=== PATIENT | male | born 1935 | race Caucasian/White ===

== ENCOUNTER 2017-10-14 00:31 | Observation (INO) | payer MEDICARE, MEDICAID ==
[2017-10-14] MEDS ORDERED: Acetaminophen TAB* 325 MG PO ONE (01:04)
[2017-10-14] MEDS ORDERED: NS 0.9% 1000 ML* 1,000 ML IV ONE (01:04)
[2017-10-14] MEDS ORDERED: Levofloxacin 750 MG IVPREMIX(* 750 MG/150 ML BAG IVPB ONE (01:05)
[2017-10-14 01:35] LABS: ABS Basophils 0.1 10^3/ul (0-0.2); ABS Eosinophils 0.2 10^3/ul (0-0.6); ABS Lymphocytes 1.2 10^3/ul (1.0-4.8); ABS Neutrophils 11.4 10^3/ul (1.5-7.7); ABS Nucleated RBC 0 10^3/ul; Eosinophil % 1.4 % (0-6); Hematocrit 38 % (42-52); Hemoglobin 12.6 g/dl (14.0-18.0); Lymphocyte % 8.6 % (25-47); Mean Corpuscular HGB Conc 34 g/dl (31-36); Mean Corpuscular Hemoglobin 28 pg (27-31); Mean Corpuscular Volume 83 fL (80-94); Mean Platelet Volume 8.7 um3 (7.4-10.4); Nucleated Red Blood Cells % 0; Platelet Count 186 10^3/ul (150-450); Red Cell Distribution Width 14 % (10.5-15); White Blood Count 13.9 10^3/ul (3.5-10.8)
[2017-10-14 01:43] LABS: INR 1.03 (0.77-1.02)
[2017-10-14 01:52] LABS: EGFR Non-African American 55.5 (>60)
[2017-10-14 02:55] LABS: Urine Appearance Clear; Urine Blood 1+ (Negative); Urine Color Yellow; Urine Ketones Negative (Negative); Urine Protein Negative (Negative); Urine Specific Gravity 1.012 (1.010-1.030); Urine Urobilinogen Negative (Negative)
[2017-10-14] MEDS ORDERED: Potassium Chloride LIQUID* 20 MEQ PACKET PO ONE (02:57)
[2017-10-14] MEDS ORDERED: Ondansetron 40 MG VIAL* 2 MG/ML 20 ML VIAL IV PRN (03:34)
[2017-10-14] MEDS ORDERED: Albuterol 2.5 MG/3 ML NEB.SOL* (0.083%) INH PRN (03:34)
[2017-10-14] MEDS ORDERED: Acetaminophen TAB* 325 MG PO PRN (03:34)
[2017-10-14] MEDS ORDERED: Dextrose 50% Syringe 50 ML* 25 GM/50 ML SYRINGE IV PUSH PRN (03:34)
[2017-10-14] MEDS ORDERED: Meclizine TAB* 12.5 MG PO PRN (03:38)
[2017-10-14] MEDS ORDERED: traMADol TAB* 50 MG PO PRN (03:38)
--- NOTE | 2017-10-14 03:38 | ED ---
Kolton Bartlett Gabriel, scribed for Jazmine Pickens MD on 10/14/17 at 0136 . Complex/Multi-Sys Presentation - HPI Summary HPI Summary: This patient is a 82 year old M BIBA to [facility] c/o weakness that began earlier tonight. Pt felt good earlier today and was gardening. Then he got a chill while watering his perkins, later on he went to use the bathroom and when he went to stand he felt so weak he was unable to. The patient rates the pain 0/10 in severity. Patient reports cough and fever. Patient denies SOB. - History Of Current Complaint Chief Complaint: EDWeakness Time Seen by Provider: 10/14/17 00:56 Hx Obtained From: Patient Onset/Duration: Lasting Hours, Still Present Timing: Constant Severity Currently: Mild Severity Initially: Mild Associated Signs And Symptoms: Positive: Other - weakness - Allergies/Home Medications Allergies/Adverse Reactions: Allergies Allergy/AdvReac Type Severity Reaction Status Date / Time No Known Allergies Allergy Verified 10/14/17 00:39 Home Medications: Home Medications Insulin Glargine,Hum.rec.anlog [Lantus Solostar 5x3 ML PENS] 15 units SQ DAILY 10/14/17 [History Confirmed 10/14/17] PMH/Surg Hx/FS Hx/Imm Hx Endocrine/Hematology History: Reports: Hx Diabetes Cardiovascular History: Reports: Hx Hypercholesterolemia, Hx Hypertension, Other Cardiovascular Problems/Disorders - IDDM II Denies: Hx Auto Implanted Cardiovert Defib, Hx Cardiac Arrest History: Reports: Other Problems/Disorders - "I had a surgery bc I had a hard time going pee" Sensory History: Reports: Hx Cataracts, Hx Contacts or Glasses Comment Only: Hx Deafness - hard of hearing Opthamlomology History: Reports: Hx Cataracts, Hx Contacts or Glasses Neurological History: Denies: Hx Dementia, Hx Developmental Delay - Surgical History Surgery Procedure, Year, and Place: urogenital procedure for urinary retention. cataracts. left knee surgery - Immunization History Date of Tetanus Vaccine: Unk Date of Influenza Vaccine: Fall 2014 Infectious Disease History: No Infectious Disease History: Reports: Hx Shingles - pt states "i took some pills for shingles awhile ago" Denies: Traveled Outside the US in Last 30 Days - Social History Alcohol Use: None Substance Use Type: Reports: None Hx Tobacco Use: Yes Smoking Status (MU): Former Smoker Amount Used/How Often: 1ppd Length of Time of Smoking/Using Tobacco: 20 yrs Have You Smoked in the Last Year: No Review of Systems Positive: Fever, Chills Positive: Cough Positive: Weakness All Other Systems Reviewed And Are Negative: Yes Physical Exam - Summary Physical Exam Summary: VITAL SIGNS: Reviewed. GENERAL: ~Patient is a well-developed and nourished male who is lying comfortable in the stretcher. Patient is not in any acute respiratory distress. HEAD AND FACE: No signs of trauma. No ecchymosis, hematomas or skull depressions. No sinus tenderness. EYES: PERRLA, EOMI x 2, No injected conjunctiva, no nystagmus. EARS: Hearing grossly intact. Ear canals and tympanic membranes are within normal limits. MOUTH: Oropharynx within normal limits. NECK: Supple, trachea is midline, no adenopathy, no JVD, no carotid bruit, no c- spine tenderness, neck with full ROM. CHEST: Symmetric, no tenderness at palpation LUNGS: rales in the left base. CVS: Regular rate and rhythm, S1 and S2 present, no murmurs or gallops appreciated. ABDOMEN: Soft, non-tender. No signs of distention. No rebound no guarding, and no masses palpated. Bowel sounds are normal. EXTREMITIES: FROM in all major joints, no edema, no cyanosis or clubbing. NEURO: Alert and oriented x 3. No acute neurological deficits. Speech is normal and follows commands. SKIN: Dry and warm Triage Information Reviewed: Yes Vital Signs On Initial Exam: Initial Vitals Temp Pulse Resp BP Pulse Ox 101.6 F 105 19 164/84 93 10/14/17 00:36 10/14/17 00:36 10/14/17 00:36 10/14/17 00:36 10/14/17 00:36 Vital Signs Reviewed: Yes Diagnostics - Vital Signs Vital Signs Temp Pulse Resp BP Pulse Ox 10/14/17 00:36 101.6 F 105 19 164/84 93 - Laboratory Result Diagrams: 10/14/17 01:20 10/14/17 01:20 Lab Statement: Any lab studies that have been ordered have been reviewed, and results considered in the medical decision making process. - Radiology CXR Radiology Interpretation Completed By: Radiologist - no acute process. Pending final report - EKG 0105 Cardiac Rate: NL EKG Rhythm: Sinus Tachycardia - at 100 BPM EKG Interpretation: Normal axis. Normal interval. No ischemic changes Complex Multi-Symp Course/Dx Assessment/Plan: This patient is a 82 year [facility] that began earlier tonight. Pt felt good earlier today and was gardening. Then he got a chill while watering his perkins, later on he went to use the bathroom and when he went to stand he felt so weak he was unable to. The patient rates the pain 0/10 in severity. Patient reports cough and fever. Patient denies SOB. An EKG reveals NSR 100 Normal axis. Normal interval. No ischemic changes. CXR reveals, no acute process. Pending final report. Blood work and UA obtained. In the ED course the patient was given levaquin, potassium, and IV fluids. Dx weakness and UTI. We discussed patient care with Dr. Parmar and she has accepted the patient for admission. Patient will be admitted. The patient is agreeable with this plan. - Diagnoses Provider Diagnoses: Weakness, UTI (urinary tract infection) - Physician Notifications Discussed Care Of Patient With: Chrissie Parmar Time Discussed With Above Provider: 03:11 Instructed by Provider To: Admit As Observation Discharge - Sign-Out/Discharge Documenting (check all that apply): Discharge/Admit/Transfer - Discharge Plan Condition: Fair Disposition: ADMITTED TO [facility] Referrals: Edie Small, BLANKET INSPECTOR [Primary Care Provider] - The documentation as recorded by the Kolton bee Gabriel accurately reflects the service I personally performed and the decisions made by me, Jazmine Pickens MD.
[2017-10-14] MEDS ORDERED: NS 0.9% 1000 ML* 1,000 ML IV SCH (03:45)
[2017-10-14] MEDS: KCL 10 MEQ/50 ML IVPREMIX* 10 MEQ/50 ML BAG IV SCH ×2 (04:22→06:04)
[2017-10-14] MEDS: Heparin VIAL(*) 5000 UNITS/ML VIAL (FIVE THOUSAND) SUBCUT SCH ×3 (06:03→21:54)
[2017-10-14 06:29] LABS: ABS Basophils 0.1 10^3/ul (0-0.2); ABS Eosinophils 0.2 10^3/ul (0-0.6); ABS Lymphocytes 1.8 10^3/ul (1.0-4.8); ABS Monocytes 1.1 10^3/ul (0-0.8); ABS Neutrophils 9.4 10^3/ul (1.5-7.7); ABS Nucleated RBC 0 10^3/ul; Eosinophil % 1.3 % (0-6); Hematocrit 35 % (42-52); Hemoglobin 11.7 g/dl (14.0-18.0); Lymphocyte % 14.6 % (25-47); Mean Corpuscular HGB Conc 33 g/dl (31-36); Mean Corpuscular Hemoglobin 28 pg (27-31); Mean Corpuscular Volume 84 fL (80-94); Mean Platelet Volume 8.9 um3 (7.4-10.4); Nucleated Red Blood Cells % 0; Platelet Count 170 10^3/ul (150-450); Red Blood Count 4.19 10^6/ul (4.00-5.40); Red Cell Distribution Width 14 % (10.5-15); White Blood Count 12.7 10^3/ul (3.5-10.8)
[2017-10-14 06:38] LABS: EGFR Non-African American 56.1 (>60)
--- NOTE | 2017-10-14 07:53 | RAD ---
HISTORY: weakness COMPARISONS: June 16, 2015 VIEWS: 1: frontal portable view of the chest at 1:35 AM FINDINGS: LINES AND TUBES: None. CARDIOMEDIASTINAL SILHOUETTE: The cardiomediastinal silhouette is normal for portable technique. PLEURA: The costophrenic angles are sharp. No pleural abnormalities are noted. LUNG PARENCHYMA: The lungs are clear. ABDOMEN: The upper abdomen is clear. There is no subphrenic gas. BONES AND SOFT TISSUES: No bone or soft tissue abnormalities are noted. IMPRESSION: NO ACTIVE CARDIOPULMONARY DISEASE.
[2017-10-14] MEDS: Lisinopril TAB* 10 MG PO SCH (08:59)
[2017-10-14] MEDS: Aspirin EC TAB* 81 MG TAB.EC PO SCH (08:59)
[2017-10-14] MEDS: Atorvastatin* 10 MG TAB PO SCH (08:59)
[2017-10-14] MEDS: Insulin LISPRO* 1 UNITS UNIT SUBCUT SCH ×3 (08:59→17:19)
[2017-10-14] MEDS: Insulin GLARGINE(*) 1 UNITS UNIT SUBCUT SCH (09:10)
--- NOTE | 2017-10-14 10:15 | HP ---
CC: Edie Small NP. * HISTORY AND PHYSICAL: DATE OF ADMISSION: 10/14/17 PRIMARY CARE PROVIDER: Edie Small NP. MY ATTENDING PHYSICIAN WHILE IN THE HOSPITAL: Dr. Chrissie Parmar * (report dictated by Davin Dawn NP) CHIEF COMPLAINT: 1. Weakness. 2. Cough. HISTORY OF PRESENT ILLNESS: Mr. James is an 82-year-old male patient who has a history of diabetes, CKD, hypertension, hyperlipidemia and also history of BPH. He is presenting today stating that this evening about around 1 o' clock - 12:30, he got up to go to use the bathroom, which he normally does throughout the night, he could not get up. He felt really weak, his legs and arms felt weak, he could not sit forward. When he did try to stand forward, he got dizzy, he fell backwards. He woke his up. His helped him to the bathroom. He was concerned because he could not really get off the toilet and she immediately called 911. He states that he has had a cough for the last couple of days, but he has been feeling well. He has not felt weak like this. He had chills tonight coming into the ER. He said there was a fever recorded in the ambulance on his way over to [facility]. He states the cough is nonproductive. He denied any shortness of breath or chest pain. He states he typically has to get up a couple of times in the middle of the night to go to the bathroom, which is not new for him. He denied any dysuria, abdominal pain, no nausea or vomiting. He states that he felt congested and there has been no recent change in his medications. He was concerned though because of the weakness as was his . She brought him into the hospital. He states that he is feeling better now. Ultimately though, it sounds that when he came in, he had elevated white count. In addition to this, he also had fever of over 101.6. Because of these findings, we were asked to evaluate for admission. PAST MEDICAL HISTORY: Significant for: 1. Diabetes. 2. Hypertension. 3. Hyperlipidemia. 4. CKD, stage 3. 5. BPH. PAST SURGICAL HISTORY: He has had right lower extremity surgery, he is not sure exactly what was done, it was many years ago, he says. He has also had a partial TURP. HOME MEDICATIONS: According to the list that he provided includes: 1. Lantus 15 units subcu daily. 2. B12, 2500 mcg p.o. daily. 3. Aspirin 81 mg daily. 4. Glucophage 1000 mg p.o. twice a day. 5. Glipizide 2.5 mg daily. 6. Simvastatin 20 mg daily. 7. Meclizine 25 mg p.o. t.i.d. as needed. 8. Lisinopril/hydrochlorothiazide one tablet daily. 9. Tramadol 50 mg every six hours as needed. ALLERGIES: No known drug allergies. FAMILY HISTORY: His mother was diabetic. His father had a history of [place]. SOCIAL HISTORY: Former smoker. He quit over 4 years ago. He does not drink alcohol. Lives with his , who is also his surrogate decision maker. REVIEW OF SYSTEMS: Again, there is a documented fever here. He admits to having chills. He denies having any significant weight change. There was no double vision. He denies having any ear discharge. No rhinorrhea. He does admit to having a cough, but denies congestion. He denies any shortness of breath. There was no abdominal pain. He denies having any nausea, vomiting. No dysuria, no frequency. No seizure. No loss of consciousness. No pruritus and no skin ulcerations. Review of 14 systems completed, all others were negative. PHYSICAL EXAMINATION GENERAL: At this time, Mr. James is an 82-year-old male patient. He is sitting in he ED stretcher. He does not appear to be in any acute distress. He appears to be well nourished, well developed. VITAL SIGNS: Blood pressure 130/90, pulse 87, respirations 18, O2 sat 95%, temperature 99. When he came in, it was 101.6. HEENT: Head is atraumatic and normocephalic. Eyes: EOMs are intact. Sclerae are anicteric. Throat: Oral mucosa appears to be dry. No oropharyngeal erythema. NECK: Supple. LUNGS: He did have some crackles actually in his right base. Equal diaphragmatic expansion. HEART: Sounds S1, S2. Regular rate and rhythm. No murmurs, rubs, or gallops. ABDOMEN: His abdomen was soft, flat and nontender. Bowel sounds present. EXTREMITIES: Pulses are 2+ throughout. He is moving all 4 extremities with 5/ 5 strength. NEUROLOGIC: He is awake, he is alert, and he is oriented x3. Tongue is midline. Certified Public Accountant are equal. No gross focal deficits. SKIN: Intact. LABORATORY DATA/DIAGNOSTIC STUDIES: WBC of 13.9, RBC of 4.50, hemoglobin of 12.6, hematocrit of 38. Hemoglobin is right at his baseline. Platelet count was 186. INR 1.03. PTT 29.3. Sodium 137, potassium of 3.2, chloride 98, bicarb 29, BUN 15, creatinine of 1.24, it is right near his baseline, he is normally 1.1. Glucose 152, lactate 2, calcium 9.1, total bili 0.5. AST 16, ALT 11, alk phos 91. Troponin 0.01. CRP of 26. Albumin 4.0. BNP 46. Urine, 1+ blood, 2+rbc's, 1+glucose. He did have a chest x-ray obtained today. When I looked at it, I did not appreciate any pulmonary edema or effusion. I am not seeing an infiltrate on x-rays at this point. He may have something in the right base, but I am not convinced that there is a definite infiltrate there. He did have an EKG obtained today. EKG does show normal sinus rhythm with a rate of 100. He does have some up-slopping ST segments diffusely which when you look from previous EKG, he had that previously. He had no elevation and T- wave inversions were noted. Old medical records were reviewed. ASSESSMENT AND PLAN: Mr. James is an 82-year-old male patient, coming into the ER today with complaints of weakness. On evaluation, found to have a fever , found to have elevated white count, possible pneumonia. He will be admitted under observation status for: 1. Systemic inflammatory response syndrome secondary to possible pneumonia. Again, it is not clear if he has definite pneumonia, but he has been coughing. He has crackles on exam. My plan would be to go ahead and he did get a liter of fluids already. He has been pancultured. I will get Legionella and Strep pneumonia antigen. I will try to get a sputum culture. We will continue the patient on Levaquin renally dosed. I have ordered p.r.n. albuterol for any shortness of breath and I have ordered PT because of the weakness and we will continue to follow him. 2. Hypokalemia. This is being replaced. I am going to give him two IV 10 mEq runs and he has been given 40 mEq here in the ED already and we will continue to follow. 3. Chronic kidney disease. His creatinine is stable. We will continue him as described. 4. Hypertension. I am going to go ahead and hold his hydrochlorothiazide. I will continue lisinopril in the setting of his acute illness. 5. Hyperlipidemia. Continue statin therapy. 6. Diabetes. I have ordered lispro sliding scale. 7. Benin prostatic hypertrophy. Continue with current medical regimen and supportive care. 8. DVT prophylaxis. I will place him on heparin subcutaneous. 9. Code status: Full code. 10. Fluids, electrolytes, nutrition. Again, we are replacing the potassium. I will put him on a consistent carb diet. TIME SPENT: On the admission is 60 minutes, greater than half time spent face- to- face with the patient obtaining my history and physical; other half time spent going over the plan of care with the patient and implementing the plan of care. I did discuss the plan of care with my attending physician, Dr. Parmar; she is in agreement. DAVIN DAWN NP [id number]/[facility] #: [id number] MTDD
--- NOTE | 2017-10-14 16:42 | PN ---
Hospitalist Progress Note Date of Service: 10/14/17 I have seen and examined Mr. James. He feels better but still feels sleepy. S. pneumo antigen is positive Continue levofloxacin x 5 days Did well with PT
[2017-10-15] MEDS: Heparin VIAL(*) 5000 UNITS/ML VIAL (FIVE THOUSAND) SUBCUT SCH (05:52)
[2017-10-15 05:56] VITALS: BP 160/84
[2017-10-15 06:11] LABS: ABS Basophils 0.1 10^3/ul (0-0.2); ABS Eosinophils 0.3 10^3/ul (0-0.6); ABS Lymphocytes 1.4 10^3/ul (1.0-4.8); ABS Monocytes 0.6 10^3/ul (0-0.8); ABS Neutrophils 4.9 10^3/ul (1.5-7.7); ABS Nucleated RBC 0 10^3/ul; Eosinophil % 3.8 % (0-6); Hematocrit 33 % (42-52); Hemoglobin 11.1 g/dl (14.0-18.0); Lymphocyte % 19.7 % (25-47); Mean Corpuscular HGB Conc 34 g/dl (31-36); Mean Corpuscular Hemoglobin 28 pg (27-31); Mean Corpuscular Volume 83 fL (80-94); Mean Platelet Volume 8.4 um3 (7.4-10.4); Nucleated Red Blood Cells % 0; Platelet Count 157 10^3/ul (150-450); Red Blood Count 3.96 10^6/ul (4.00-5.40); Red Cell Distribution Width 14 % (10.5-15); White Blood Count 7.3 10^3/ul (3.5-10.8)
[2017-10-15] MEDS ORDERED: Potassium Chloride LIQUID* 20 MEQ PACKET PO ONE (08:42)
[2017-10-15] MEDS: Aspirin EC TAB* 81 MG TAB.EC PO SCH (10:00)
[2017-10-15] MEDS: Lisinopril TAB* 10 MG PO SCH (10:00)
[2017-10-15] MEDS: Atorvastatin* 10 MG TAB PO SCH (10:00)
[2017-10-15] MEDS: Insulin GLARGINE(*) 1 UNITS UNIT SUBCUT SCH (10:01)
[2017-10-15] MEDS: Insulin LISPRO* 1 UNITS UNIT SUBCUT SCH (10:01)
--- NOTE | 2017-10-15 13:04 | DS ---
DISCHARGE SUMMARY: DATE OF ADMISSION: 10/14/17 DATE OF DISCHARGE: 10/15/17 PRIMARY CARE PHYSICIAN: Edie Small NP. PRINCIPAL DISCHARGE DIAGNOSIS: Community-acquired pneumonia. SECONDARY DISCHARGE DIAGNOSES: 1. Diabetes. 2. Hypertension. 3. Chronic kidney disease. DISCHARGE MEDICATIONS: 1. Lantus 15 units subcutaneous daily. 2. B12 at 2500 mcg daily. 3. Aspirin 81 mg daily. 4. Metformin 1000 mg b.i.d. 5. Glipizide 2.5 mg daily. 6. Simvastatin 20 mg daily. 7. Meclizine 25 mg t.i.d. p.r.n. 8. Lisinopril/HCTZ daily. 9. Tramadol 50 mg q. 6 hours p.r.n. pain. 10. Levofloxacin 750 mg every other day for 2 more doses. HOSPITAL COURSE BY PROBLEM: 1. Community-acquired pneumonia. Mr. James presented with 1 day of cough and weakness. His initial chest x-ray was unremarkable; however, given his presenting symptoms of cough and weakness and the finding of leukocytosis, he was treated empirically for community-acquired pneumonia with levofloxacin. On the following day, his strep pneumonia antigen returned positive, so he was continued on levofloxacin. His weakness improved and by the second day of admission he was able to ambulate on the unit independently and was downgraded from a fall risk to independent level, so it was determined he was safe to go home and he requested discharge. He needs to complete 2 more doses of antibiotics. He will take 1 dose tomorrow 10/16/17 and the last dose on Thursday10/18/17. This has been explained to him and he expressed his understanding. 2. Insulin-dependent diabetes. He was continued on 15 units nightly of Lantus with good control. 3. CKD. His levofloxacin was renally dosed. 4. Hypertension. He was continued on his home doses of lisinopril and HCTZ. 5. Disposition. Mr. James is being discharged to home on 10/15 in good condition. He will follow up with Edie Small within 1 week of discharge. [id number]/[facility] #: [id number] [facility]
[2017-10-16] MEDS ORDERED: Levofloxacin 750 MG IVPREMIX(* 750 MG/150 ML BAG IVPB SCH (09:00)
== END 2017-10-15 11:30 | disposition home or self-care (01) ==
LOC: ED 00:31 → MED 03:47
PROVIDERS: ADMIT Pediatrics; ATTEND Internal Medicine
DX: J15.4 Pneumonia due to other streptococci (principal); R65.10 Systemic inflammatory response syndrome (SIRS) of non-infectious origin without acute organ dysfunction; I12.9 Hypertensive chronic kidney disease with stage 1 through stage 4 chronic kidney disease, or unspecified chronic kidney disease; E11.22 Type 2 diabetes mellitus with diabetic chronic kidney disease; R53.1 Weakness; N18.3 Chronic kidney disease, stage 3 (moderate); Z79.4 Long term (current) use of insulin; E87.6 Hypokalemia; E78.5 Hyperlipidemia, unspecified; Z79.899 Other long term (current) drug therapy; Z79.82 Long term (current) use of aspirin; N40.0 Benign prostatic hyperplasia without lower urinary tract symptoms; Z87.891 Personal history of nicotine dependence; Z82.49 Family history of ischemic heart disease and other diseases of the circulatory system; R00.0 Tachycardia, unspecified
CPT/HCPCS: 36415; 71045; 80048; 80053; 81003; 81015; 83605; 83880; 84484; 85025; 85610; 85730; 86140; 87040; 87086; 87899; 93005; 96361; 96365; 96366; 96372; 99284; A9270-GY; G0378; G8978-GP-CI; G8979-GP-CI; G8980-GP-CI; J1644; J3480

== ENCOUNTER 2018-05-11 12:26 | Inpatient (IN) | payer MEDICARE, MEDICAID ==
[2018-05-11] MEDS ORDERED: NS 0.9% 1000 ML*IV.FLUID IV ONE (12:37)
[2018-05-11] MEDS ORDERED: Acetaminophen TAB* 325 MG PO ONE (12:38)
[2018-05-11] MEDS ORDERED: Levofloxacin 750 MG IVPREMIX(* 750 MG/150 ML BAG IVPB ONE (12:38)
[2018-05-11] MEDS ORDERED: Acetaminophen TAB* 325 MG ONE (12:39)
--- NOTE | 2018-05-11 12:46 | ED ---
Influenza-Like Illness - HPI Summary HPI Summary: An 82 y/o male brought in by [facility] ambulance presents to [facility] with a chief complaint of shaking since 09:00 05/11/18. A fever of 103.4 was recorded in the ED. He rates his pain as 0/10. The patient has also been coughing up phlegm since 05/04/18. The patient denies a Hx of asthma, COPD or cardiac disease, but admits to HTN. He reports taking his BP medications. He denies calf swelling. He lives with his , who he claims is feeling fine. - History of Current Complaint Chief Complaint: EDFluSymptoms Time Seen by Provider: 05/11/18 12:29 Hx Obtained From: Patient, EMS Onset/Duration: Sudden Onset, Lasting Hours, Still Present Severity: Mild Associated Signs & Symptoms: Fever, Cough - Allergy/Home Medications Allergies/Adverse Reactions: Allergies Allergy/AdvReac Type Severity Reaction Status Date / Time No Known Allergies Allergy Verified 10/14/17 00:39 Home Medications: Home Medications Cyanocobalamin TAB* [Vitamin B12 TAB*] 1,000 mcg PO DAILY 05/11/18 [History Confirmed 05/11/18] Ferrous Sulfate TAB* 325 mg PO DAILY 05/11/18 [History Confirmed 05/11/18] Insulin Glargine,Hum.rec.anlog [Lantus Solostar 5x3 ML PENS] 15 units SUBCUT DAILY 05/11/18 [History Confirmed 05/11/18] Lisinopril/HCTZ 20/12.5(NF) [Zestoretic 20/12.5(NF)] 1 tab PO DAILY 05/11/18 [ History Confirmed 05/11/18] Meloxicam(NF) [Mobic(NF)] 7.5 mg PO DAILY PRN 05/11/18 [History Confirmed ] Simvastatin TAB(NF) [Zocor(NF)] 20 mg PO DAILY 05/11/18 [History Confirmed 05/11] glipiZIDE [Glipizide ER] 10 mg PO QAM 05/11/18 [History Confirmed 05/11/18] PMH/Surg Hx/FS Hx/Imm Hx Endocrine/Hematology History: Reports: Hx Diabetes Cardiovascular History: Reports: Hx Hypercholesterolemia, Hx Hypertension, Other Cardiovascular Problems/Disorders - IDDM II Denies: Hx Auto Implanted Cardiovert Defib, Hx Cardiac Arrest Respiratory History: Denies: Hx Asthma, Hx Chronic Obstructive Pulmonary Disease (COPD) History: Reports: Other Problems/Disorders - "I had a surgery bc I had a hard time going pee" Sensory History: Reports: Hx Cataracts, Hx Hearing Problem - [place] Denies: Hx Contacts or Glasses, Hx Hearing Aid Comment Only: Hx Deafness - hard of hearing Opthamlomology History: Reports: Hx Cataracts Denies: Hx Contacts or Glasses Neurological History: Denies: Hx Dementia, Hx Developmental Delay - Surgical History Surgery Procedure, Year, and Place: urogenital procedure for urinary retention. cataracts. left knee surgery - Immunization History Date of Tetanus Vaccine: Unk Date of Influenza Vaccine: Fall 2014 Infectious Disease History: No Infectious Disease History: Reports: Hx Shingles - pt states "i took some pills for shingles awhile ago" Denies: Traveled Outside the [place] in Last 30 Days - Family History Known Family History: Positive: Cardiac Disease - [place] -father, brother, Diabetes - sister, Other - breast cancer- sister - Social History Alcohol Use: Rare Substance Use Type: Reports: None Hx Tobacco Use: Yes Smoking Status (MU): Former Smoker Amount Used/How Often: 1ppd Length of Time of Smoking/Using Tobacco: 20 yrs Have You Smoked in the Last Year: No Review of Systems Positive: Fever, Other - positive: shaking Positive: Cough Negative: Edema All Other Systems Reviewed And Are Negative: Yes Physical Exam - Summary Physical Exam Summary: Appearance: The patient is tremulous, well-nourished in no acute distress and in no acute pain. Skin: The skin is warm and dry and skin color reflects adequate perfusion. HEENT: The head is normocephalic and atraumatic. The pupils are equal and reactive. The conjunctivae are clear and without drainage. Nares are patent and without drainage. Mouth reveals moist mucous membranes and the throat is without erythema and exudate. The external ears are intact. The ear canals are patent and without drainage. The tympanic membranes are intact. Neck: The neck is supple with full range of motion and non-tender. There are no carotid bruits. There is no neck vein distension. Respiratory: Chest is non-tender. Crackles half way up on both sides- worse on left than on right. Cardiovascular: Tachycardic. There is no murmur or rub auscultated. There is no peripheral edema and pulses are symmetrical and equal. Abdomen: The abdomen is soft and non-tender. There are normal bowel sounds heard in all four quadrants and there is no organomegaly palpated. Musculoskeletal: There is no back tenderness noted. Extremities are non-tender with full range of motion. There is good capillary refill. There is no peripheral edema or calf tenderness elicited. Neurological: Patient is alert and oriented to person, place and time. The patient has symmetrical motor strength in all four extremities. Cranial nerves are grossly intact. Deep tendon reflexes are symmetrical and equal in all four extremities. Psychiatric: The patient has an appropriate affect and does not exhibit any anxiety or depression. Triage Information Reviewed: Yes Vital Signs On Initial Exam: Initial Vitals Temp Pulse Resp BP Pulse Ox 103.4 F 109 18 186/106 94 05/11/18 12:29 05/11/18 12:29 05/11/18 12:29 05/11/18 12:29 05/11/18 12:29 Vital Signs Reviewed: Yes Diagnostics - Vital Signs Vital Signs Temp Pulse Resp BP Pulse Ox 05/11/18 12:29 103.4 F 109 18 186/106 94 - Laboratory Result Diagrams: 05/11/18 11:59 05/11/18 11:59 Lab Statement: Any lab studies that have been ordered have been reviewed, and results considered in the medical decision making process. - Radiology CXR Radiology Interpretation Completed By: Radiologist Summary of Radiographic Findings: New alveolar consolidation at the RIGHT midlung zone consistent pneumonia given the. clinical context. ED provider has reviewed this imaging report. - EKG 12:51 Cardiac Rate: Tachycardia - 106 bpm EKG Rhythm: Sinus Tachycardia Ectopy: PVCs Summary of EKG Findings: EKG at 12:51 shows sinus tachycardia at 106 bpm with PVCs. Flu Symptom Course/Dx - Course Course Of Treatment: Mr. James presented febrile and tachycardic with a chief complaint of shaking and a cough. He met septic criteria on arrival and fluids and Levaquin were ordered for him IV while his workup was in progress. He was found to have a right-sided pneumonia and the hospitalist service was contacted for admission. He had a leukocytosis but his lactic acid was only 2. - Diagnoses Provider Diagnoses: Pneumonia, Sepsis - Physician Notifications Discussed Care Of Patient With: Gabriela Dno Time Discussed With Above Provider: 14:30 Instructed by Provider To: Admit As Inpatient Critical Care Time: 30-74 min Discharge - Sign-Out/Discharge Documenting (check all that apply): Patient Departure - Admit - Discharge Plan Condition: Fair Disposition: ADMITTED TO [facility] Referrals: Edie Small, SENIOR STEREO COMPILER TEAM LEAD [Primary Care Provider] - - Billing Disposition and Condition Condition: FAIR Disposition: Admitted to [facility] - Attestation Statements Document Initiated by Ran: Yes Documenting Scribe: Matheus Jordan Provider For Whom Ran is Documenting (Include Credential): Niles Gaviria MD Scribe Attestation: IMatheus scribed for Niles Gaviria MD on 05/11/18 at 1635. Scribe Documentation Reviewed: Yes Provider Attestation: The documentation as recorded by the Matheus bee accurately reflects the service I personally performed and the decisions made by me, Niles Gaviria MD Status of Scribe Document: Viewed
[2018-05-11 13:07] LABS: Hematocrit 39 % (42-52); Hemoglobin 13.1 g/dl (14.0-18.0); Mean Corpuscular HGB Conc 33 g/dl (31-36); Mean Corpuscular Hemoglobin 28 pg (27-31); Mean Corpuscular Volume 83 fL (80-94); Mean Platelet Volume 8.6 fL (7.4-10.4); Platelet Count 201 10^3/ul (150-450); Red Blood Count 4.73 10^6/ul (4.00-5.40); Red Cell Distribution Width 14 % (10.5-15); White Blood Count 16.9 10^3/ul (3.5-10.8)
[2018-05-11 13:11] LABS: INR 0.99 (0.77-1.02)
[2018-05-11 13:21] LABS: Albumin 4.1 g/dL (3.2-5.2); Albumin/Globulin Ratio 1.1 (1-3); BUN/Creatinine Ratio 14.7 (8-20); C Reactive Protein 20.93 mg/L (<8.01); Calcium 9.3 mg/dL (8.6-10.3); Globulin 3.7 g/dL (2-4); Potassium 3.4 mmol/L (3.5-5.0); Total Bilirubin 0.9 mg/dL (0.2-1.0); Total Protein 7.8 g/dL (6.4-8.9)
[2018-05-11 13:36] LABS: ABS Basophils 0.1 10^3/ul (0-0.2); ABS Eosinophils 0.1 10^3/ul (0-0.6); ABS Lymphocytes 0.9 10^3/ul (1.0-4.8); ABS Monocytes 0.5 10^3/ul (0-0.8); ABS Neutrophils 15.1 10^3/ul (1.5-7.7); ABS Nucleated RBC 0 10^3/ul; Eosinophil % 0.9 %; Lymphocyte % 5.3 %; Nucleated Red Blood Cells % 0
[2018-05-11 15:11] LABS: Urine Appearance Clear; Urine Bacteria Absent (Absent); Urine Bilirubin Negative (Negative); Urine Blood 1+ (Negative); Urine Color Straw; Urine Glucose 1+(50 mg/dL) (Negative); Urine Ketones 1+ (Negative); Urine Nitrite Negative (Negative); Urine Protein Negative (Negative); Urine Red Blood Cell Trace(0-2/hpf) (Absent); Urine Specific Gravity 1.009 (1.010-1.030); Urine Urobilinogen Negative (Negative); Urine White Blood Cell Trace(0-5/hpf) (Absent)
[2018-05-11] MEDS ORDERED: Al Hydrox/Mg Hydrox/Simet LIQ* 30 ML UDC PO PRN (15:43)
[2018-05-11] MEDS ORDERED: Acetaminophen TAB* 325 MG PO PRN (15:43)
[2018-05-11] MEDS ORDERED: Albuterol 2.5 MG/3 ML NEB.SOL* (0.083%) INH PRN (15:43)
[2018-05-11] MEDS ORDERED: traMADol TAB* 50 MG PO PRN (15:46)
[2018-05-11] MEDS ORDERED: Dextrose 50% Syringe 50 ML* 25 GM/50 ML SYRINGE IV PUSH PRN (16:06)
[2018-05-11] MEDS ORDERED: Potassium Chlor TAB* 20 MEQ TAB.ER PO ONE (17:15)
[2018-05-11] MEDS: Insulin LISPRO* 1 UNITS UNIT SUBCUT SCH (17:44)
[2018-05-11] MEDS: NS 0.9% 1000 ML* 1,000 ML IV SCH (17:55)
[2018-05-11] MEDS: cefTRIAXone(*) 1 GM in NS 0.9% 50 ML* 50 ML IVPB SCH (17:55)
[2018-05-11] MEDS ORDERED: NS 0.9% 1000 ML* 1,000 ML IV ONE (18:55)
--- NOTE | 2018-05-11 20:00 | HP ---
CC: Edie Small NP * HISTORY AND PHYSICAL: DATE OF ADMISSION: 05/11/18 PRIMARY CARE PROVIDER: Edie Small NP. ATTENDING PHYSICIAN WHILE IN THE HOSPITAL: Dr. Gabriela Don * (dictated by Delores Hemphill NP). CHIEF COMPLAINT: Shaking chills, fever. HISTORY OF PRESENT ILLNESS: Mr. James is an 82-year-old gentleman with past medical history significant for diabetes, hyperlipidemia, hypertension, chronic kidney disease stage 3, and BPH, who presented to the emergency room with complaints that he woke up with shaking chills this morning, so his called an ambulance and brought him to the emergency room. The patient does report that he has had a cough for 3 to 4 days with clear sputum. He denies any other symptoms. He denies any recent sick contacts. Denies fever or chills, denies chest pain or edema. He does report cough. Denies any hemoptysis or shortness of breath. No nausea, vomiting, diarrhea, or abdominal pain, hematuria, focal weakness or sensory loss. Denies any visual complaints, dysphagia, arthralgias , myalgias, rashes, lesions, psychosis or anxiety. While in the emergency room, the patient had routine lab work. He was found to have leukocytosis with a white count of 16.9 and a fever of T-max 103.4 and meeting sepsis criteria. The patient also had a chest x-ray, which confirmed right mid lung zone consolidation consistent with pneumonia. Due to these findings, we were asked to see and evaluate him for admission. PAST MEDICAL HISTORY: 1. Diabetes. 2. Hyperlipidemia. 3. Hypertension. 4. BPH. 5. History of chronic kidney disease stage 3. PAST SURGICAL HISTORY: 1. Left knee surgery. 2. TURP. 3. Bilateral cataract surgery. HOME MEDICATIONS: 1. Metformin 1000 mg p.o. b.i.d. 2. Simvastatin 20 mg p.o. daily. 3. Aspirin 81 mg p.o. daily. 4. Tramadol 50 to 100 mg p.o. q.6 hours as needed for pain. 5. Vitamin B12 of 1000 mcg p.o. daily. 6. Lisinopril/hydrochlorothiazide 20/12.5 one tablet p.o. daily. 7. Glipizide 10 mg p.o. q.a.m. 8. Lantus 15 units subcu daily. ALLERGIES: No known drug allergies. FAMILY HISTORY: Father with an SC at age 77. Mother, father, brothers, and sisters all with diabetes. Sister with unknown type of cancer. SOCIAL HISTORY: The patient reports that he had quit smoking approximately 47 years ago. He currently does occasionally chew. Denies any alcohol or illicit drug use. He is . Surrogate decision maker in the event he is unable to make his own decisions is his . He is a full code. REVIEW OF SYSTEMS: He denies fevers, but had a documented fever in the emergency room. He does report shaking chills. Denies any loss of appetite. Denies any chest pain or edema. He does report cough x3 to 4 days with clear sputum. Denies any hemoptysis or shortness of breath. No nausea, vomiting, diarrhea, abdominal pain, gross hematuria, dysuria. Denies any focal weakness or sensory loss, visual complaints, dysphagia, arthralgias or myalgias, rashes, lesions or open sores. Denies any psychosis or anxiety. PHYSICAL EXAMINATION GENERAL: At this time, Mr. James is sitting in a wheelchair in his room. He does not appear to be in any acute distress. He is alert and oriented x3. HEENT: Head is atraumatic and normocephalic. Eyes: EOMs are intact. Sclerae are anicteric and not pale. Oral mucosa appears to be moist. NECK: Supple. LUNGS: Lungs are diminished bilaterally with expiratory wheezes and diminished in the right base with scattered rhonchi on the right, few crackles in the left base. ABDOMEN: Soft and nontender. Bowel sounds are present x4. EXTREMITIES: Pedal pules are +2 bilaterally. He is able to move all 4 extremities with 5/5 strength. NEUROLOGIC: He is awake, alert, oriented x3. Speech is clear. There are no gross focal deficits. SKIN: Intact. LAB DATA AND DIAGNOSTIC STUDIES: WBCs are 16.9, RBCs 4.73, hemoglobin 13.1, hematocrit was 39, platelet count was 201,000. INR was 0.99. Sodium 137, potassium 3.4, chloride 100, BUN was 17, creatinine 1.16, glucose was 172, lactic acid 2.2, calcium 9.3, T-bili 0.90, ASTs were 18, ALTs were 12, alkaline phosphatase 101, troponin 0.01. C-reactive protein was 20.93. Urine color was straw clear. PH was 8.0, specific gravity 1.009, urine protein negative, ketones were 1+, blood was 1+, nitrites were negative. Bilirubin and urobilinogen were both negative. Leukocyte esterase was negative. Urine WBCs were trace, RBCs were present, squamous epithelial cells were present, bacteria was absent. Urine glucose was 1+. Flu A and B were both negative. He had a chest x-ray, which showed right mid-lung consolidation consistent with pneumonia. He had an electrocardiogram, which showed sinus tachycardia at a rate of 106. He does have some ST depressions noted in V4, 5, and 6, as well as PVCs. Mild ST elevations in aVR. His troponins were negative. ASSESSMENT AND PLAN: Mr. James is an 82-year-old male with past medical history significant for hyperlipidemia, hypertension, and diabetes, who presented to the emergency room with complaints of shaking chills and was found to be febrile with leukocytosis with a white count of 16.9. He was found to have right mid lung pneumonia. He will be admitted inpatient for: 1. Sepsis. The patient's sepsis was evidenced by sepsis 2 criteria with temperature of 103.2, heart rate was 109, elevated WBCs at 16.9, and lactic acid of 2.2, with known source of right mid lung pneumonia. Blood cultures were obtained in the emergency room and I will get a septum culture. He did have a UA with urine culture sent. I will get urine for Legionella and Strep pneumoniae. He was given Levaquin 750 mg in the emergency room. I will continue him on azithromycin and ceftriaxone. During his hospitalization, he was given a 30 cc/kg of IV fluids in emergency room. I will continue him on normal saline at 75 cc per hour. I will repeat CBC and BMP in the a.m. 2. Diabetes. We will place him on fingerstick a.c. and h.s. He will have Lantus 15 units daily and lispro sliding scale, hold his metformin and glipizide at this time. 3. Hypertension. I will continue him on lisinopril and hold his hydrochlorothiazide at this time as the patient is hypertensive. 4. Hyperlipidemia. We will continue on simvastatin as previously prescribed. 5. FEN. He can have a heart healthy decaf-okay diet. 6. DVT prophylaxis. I will place him on heparin subcu. 7. Code status: He is a full code. TIME SPENT: Time spent on this admission was approximately 60 minutes, greater than half of that time was spent with the patient obtaining my history and physical, the other half of the time was spent in going over my plan of care and implementing my plan of care. I have discussed this with my attending, Dr. Gabriela Don, she is in agreement with my plan. DELORES HEMPHILL, REIMBURSEMENT CONSULTANT [id number]/[facility] #: [id number] OTF
[2018-05-11] MEDS: Azithromycin IV(*) 500 MG in NS 0.9% 250 ML* 250 ML IVPB SCH (22:03)
[2018-05-11] MEDS: Heparin VIAL(*) 5000 UNITS/ML VIAL (FIVE THOUSAND) SUBCUT SCH (22:03)
[2018-05-11] MEDS ORDERED: Melatonin 3 MG TAB PO ONE (22:27)
[2018-05-11] MEDS: Melatonin 3 MG TAB PO SCH (22:35)
[2018-05-12] MEDS: Heparin VIAL(*) 5000 UNITS/ML VIAL (FIVE THOUSAND) SUBCUT SCH ×3 (05:11→20:42)
[2018-05-12 06:14] LABS: Hematocrit 31 % (42-52); Hemoglobin 10.1 g/dl (14.0-18.0); Mean Corpuscular HGB Conc 33 g/dl (31-36); Mean Corpuscular Hemoglobin 28 pg (27-31); Mean Corpuscular Volume 84 fL (80-94); Mean Platelet Volume 8.7 fL (7.4-10.4); Platelet Count 150 10^3/ul (150-450); Red Blood Count 3.65 10^6/ul (4.00-5.40); Red Cell Distribution Width 14 % (10.5-15); White Blood Count 23.1 10^3/ul (3.5-10.8)
[2018-05-12 06:29] LABS: Calcium 7.7 mg/dL (8.6-10.3); EGFR Non-African American 58.2 (>60); Potassium 3.6 mmol/L (3.5-5.0)
[2018-05-12 06:37] LABS: ABS Basophils 0.2 10^3/ul (0-0.2); ABS Eosinophils 0 10^3/ul (0-0.6); ABS Lymphocytes 1.6 10^3/ul (1.0-4.8); ABS Monocytes 1.8 10^3/ul (0-0.8); ABS Neutrophils 19.6 10^3/ul (1.5-7.7); ABS Nucleated RBC 0 10^3/ul
[2018-05-12 06:39] LABS: ABS Neutrophils 19.2 10^3/ul (1.5-7.7); Immature Granulocytes 8 % (0-9); Lymphocytes % 12 %; Monocytes % 4 %; Neutrophil % 75 %
[2018-05-12 06:40] LABS: ABS Eosinophils 0.2 10^3/ul (0-0.6)
[2018-05-12] MEDS: Insulin LISPRO* 1 UNITS UNIT SUBCUT SCH ×3 (08:18→17:29)
--- NOTE | 2018-05-12 08:28 | PN ---
Subjective Date of Service: 05/12/18 Interval History: Admitted yesterday for Right middle lobe pnuemonia. Doing well currently, offers no complaints, no chest pain, no shortness of breath, no more chills, and has mild productive cough. Objective Active Medications: Acetaminophen (Tylenol Tab*) 650 mg PO Q4H PRN PRN Reason: FEVER/PAIN Al Hydrox/Mg Hydrox/Simethicone (Maalox Plus*) 30 ml PO Q6H PRN PRN Reason: INDIGESTION Albuterol (Ventolin 2.5 Mg/3 Ml Neb.Edith*) 2.5 mg INH [id number] AWAKE PRN PRN Reason: sob/wheezing Aspirin (Aspirin Ec Tab*) 81 mg PO DAILY [facility] Atorvastatin Calcium (Lipitor*) 10 mg PO DAILY [facility] Cyanocobalamin (Vitamin B12 Tab*) 1,000 mcg PO DAILY [facility] Dextrose (D50w Syringe 50 Ml*) 12.5 gm IV PUSH .FOR FS < 60 - SS PRN PRN Reason: FS < 60 Heparin Sodium (Porcine) (Heparin Vial(*)) 5,000 units SUBCUT Q8HR [facility] Last Admin: 05/12/18 05:11 Dose: 5,000 units Sodium Chloride (Ns 0.9% 1000 Ml*) 1,000 mls @ 75 mls/hr IV PER RATE [facility] Last Admin: 05/11/18 17:55 Dose: 75 mls/hr Ceftriaxone Sodium 1 gm/ (Sodium Chloride) 50 mls @ 200 mls/hr IVPB Q24H [facility] Last Admin: 05/11/18 17:55 Dose: 200 mls/hr Azithromycin 500 mg/ Sodium (Chloride) 250 mls @ 250 mls/hr IVPB Q24H [facility] Last Admin: 05/11/18 22:03 Dose: 250 mls/hr Insulin Glargine (Lantus(*)) 15 units SUBCUT DAILY [facility] Insulin Human Lispro (Humalog*) 0 units SUBCUT AC [facility]; Protocol Last Admin: 05/12/18 08:18 Dose: Not Given Melatonin (Melatonin) 3 mg PO BEDTIME [facility] Last Admin: 05/11/18 22:35 Dose: 3 mg Tramadol HCl (Ultram*) 50 mg PO Q6HR PRN PRN Reason: PAIN Vital Signs - 8 hr 05/12/18 05/12/1819 03:28 07:44 08:20 Temperature 99.7 F 98.0 F Pulse Rate 81 79 Respiratory 16 18 Rate Blood Pressure 126/57 110/67 (mmHg) O2 Sat by Pulse 97 96 96 Oximetry Oxygen Devices in Use Now: None Appearance: Elderly male lying in bed, not in distress. Eyes: PERRLA Respiratory: - - No tachypnea, no use of accessory muscles, mild rhonchi at the Right lower lobe. Cardiovascular: NL Sounds; No Murmurs; No JVD, RRR, No Edema Abdominal: NL Sounds; No Tenderness; No Distention Extremities: No Edema Neurological: Alert and Oriented x 3 Result Diagrams: 05/12/18 06:05 05/12/18 06:05 Microbiology and Other Data: Microbiology 05/11/18 17:30 Legionella Urinary Antigen - Final Urine Negative Legionella Antigen Streptococcus pneumoniae Ag Screen - Final Negative S. pneumo Antigen 05/11/18 11:59 Influenza Types A,B Antigen - Final Nasopharyngeal Specimen received for Influenza A/B Molecular testing Assess/Plan/Problems-Billing Assessment: - Patient Problems (1) Sepsis due to pneumonia Current Visit: Yes Status: Acute Code(s): J18.9 - PNEUMONIA, UNSPECIFIED ORGANISM; A41.9 - SEPSIS, UNSPECIFIED ORGANISM SNOMED Code(s): 13983293 Comment: Improved. Cultures pending. Continue with azithromycin and rocephin , (2) Diabetes Current Visit: Yes Status: Acute Priority: High Code(s): E11.9 - TYPE 2 DIABETES MELLITUS WITHOUT COMPLICATIONS SNOMED Code(s): 99250369 Comment: Home metformin held, and glipizide Continue home lantus monitor fingerstick and sliding scale,. (3) HLD (hyperlipidemia) Current Visit: Yes Status: Acute Priority: High Code(s): E78.5 - HYPERLIPIDEMIA, UNSPECIFIED SNOMED Code(s): 05522062 Comment: continue statin (4) HTN (hypertension) Current Visit: Yes Status: Acute Priority: High Code(s): I10 - ESSENTIAL ( PRIMARY) HYPERTENSION SNOMED Code(s): 15116963 Comment: Holding home Lisinopril/HCTZ due to sepsis, BP is controlled for now. will monitor. (5) Constipated Current Visit: Yes Status: Acute Code(s): K59.00 - CONSTIPATION, UNSPECIFIED SNOMED Code(s): 35999721 Comment: Has not had BM since 05/09, order senna and colace (6) DVT prophylaxis Current Visit: Yes Status: Acute Code(s): SNQ2424 - SNOMED Code(s): 555142151 Comment: Heparin Sub-q (7) Full code status Current Visit: Yes Status: Acute Code(s): Z78.9 - OTHER SPECIFIED HEALTH STATUS SNOMED Code(s): 088930350 Status and Disposition: Patient is from home, plan to discharge home when medically stable.
[2018-05-12] MEDS ORDERED: Senna TAB PO PRN (08:29)
[2018-05-12] MEDS: Insulin GLARGINE(*) 1 UNITS UNIT SUBCUT SCH (10:20)
[2018-05-12] MEDS: Cyanocobalamin TAB* 500 MCG PO SCH (10:21)
[2018-05-12] MEDS: Atorvastatin* 10 MG TAB PO SCH (10:21)
[2018-05-12] MEDS: Aspirin EC TAB* 81 MG TAB.EC PO SCH (10:21)
[2018-05-12] MEDS: Docusate CAP* 100 MG PO SCH ×2 (10:21→20:42)
[2018-05-12] MEDS: NS 0.9% 1000 ML* 1,000 ML IV SCH (10:52)
[2018-05-12] MEDS: cefTRIAXone(*) 1 GM in NS 0.9% 50 ML* 50 ML IVPB SCH (17:44)
[2018-05-12] MEDS: Azithromycin IV(*) 500 MG in NS 0.9% 250 ML* 250 ML IVPB SCH (20:41)
[2018-05-12] MEDS: Melatonin 3 MG TAB PO SCH (20:42)
[2018-05-13] MEDS: NS 0.9% 1000 ML* 1,000 ML IV SCH (01:30)
[2018-05-13] MEDS: Heparin VIAL(*) 5000 UNITS/ML VIAL (FIVE THOUSAND) SUBCUT SCH (06:01)
[2018-05-13 07:03] LABS: ABS Basophils 0.1 10^3/ul (0-0.2); ABS Eosinophils 0.2 10^3/ul (0-0.6); ABS Lymphocytes 1.4 10^3/ul (1.0-4.8); ABS Neutrophils 14.9 10^3/ul (1.5-7.7); ABS Nucleated RBC 0 10^3/ul; Eosinophil % 0.9 %; Hematocrit 31 % (42-52); Hemoglobin 10.1 g/dl (14.0-18.0); Lymphocyte % 7.7 %; Mean Corpuscular HGB Conc 33 g/dl (31-36); Mean Corpuscular Hemoglobin 27 pg (27-31); Mean Corpuscular Volume 83 fL (80-94); Nucleated Red Blood Cells % 0; Platelet Count 157 10^3/ul (150-450); Red Blood Count 3.69 10^6/ul (4.00-5.40); Red Cell Distribution Width 14 % (10.5-15); White Blood Count 17.6 10^3/ul (3.5-10.8)
[2018-05-13 07:20] LABS: BUN/Creatinine Ratio 16.3 (8-20); Calcium 8.4 mg/dL (8.6-10.3); Potassium 3.1 mmol/L (3.5-5.0)
[2018-05-13] MEDS: Docusate CAP* 100 MG PO SCH (07:50)
[2018-05-13] MEDS: Cyanocobalamin TAB* 500 MCG PO SCH (07:50)
[2018-05-13] MEDS: Insulin LISPRO* 1 UNITS UNIT SUBCUT SCH (07:51)
[2018-05-13] MEDS: Insulin GLARGINE(*) 1 UNITS UNIT SUBCUT SCH (07:51)
[2018-05-13] MEDS: Aspirin EC TAB* 81 MG TAB.EC PO SCH (07:51)
[2018-05-13] MEDS: Atorvastatin* 10 MG TAB PO SCH (07:51)
[2018-05-13] MEDS ORDERED: Potassium Chlor TAB* 20 MEQ TAB.ER PO ONE (09:40)
--- NOTE | 2018-05-13 09:47 | PN ---
Subjective Date of Service: 05/13/18 Interval History: Reports no fever, no chills. Occasional cough. No chest pain Objective Active Medications: Acetaminophen (Tylenol Tab*) 650 mg PO Q4H PRN PRN Reason: FEVER/PAIN Al Hydrox/Mg Hydrox/Simethicone (Maalox Plus*) 30 ml PO Q6H PRN PRN Reason: INDIGESTION Albuterol (Ventolin 2.5 Mg/3 Ml Neb.Edith*) 2.5 mg INH [id number] AWAKE PRN PRN Reason: sob/wheezing Aspirin (Aspirin Ec Tab*) 81 mg PO DAILY [facility] Last Admin: 05/13/18 07:51 Dose: 81 mg Atorvastatin Calcium (Lipitor*) 10 mg PO DAILY [facility] Last Admin: 05/13/18 07:51 Dose: 10 mg Cyanocobalamin (Vitamin B12 Tab*) 1,000 mcg PO DAILY [facility] Last Admin: 05/13/18 07:50 Dose: 1,000 mcg Dextrose (D50w Syringe 50 Ml*) 12.5 gm IV PUSH .FOR FS < 60 - SS PRN PRN Reason: FS < 60 Docusate Sodium (Colace Cap*) 100 mg PO BID [facility] Last Admin: 05/13/18 07:50 Dose: 100 mg Heparin Sodium (Porcine) (Heparin Vial(*)) 5,000 units SUBCUT Q8HR [facility] Last Admin: 05/13/18 06:01 Dose: 5,000 units Sodium Chloride (Ns 0.9% 1000 Ml*) 1,000 mls @ 75 mls/hr IV PER RATE [facility] Last Admin: 05/13/18 01:30 Dose: 75 mls/hr Ceftriaxone Sodium 1 gm/ (Sodium Chloride) 50 mls @ 200 mls/hr IVPB Q24H [facility] Last Admin: 05/12/18 17:44 Dose: 200 mls/hr Azithromycin 500 mg/ Sodium (Chloride) 250 mls @ 250 mls/hr IVPB Q24H [facility] Last Admin: 05/12/18 20:41 Dose: 250 mls/hr Insulin Glargine (Lantus(*)) 15 units SUBCUT DAILY [facility] Last Admin: 05/13/18 07:51 Dose: 15 units Insulin Human Lispro (Humalog*) 0 units SUBCUT AC [facility]; Protocol Last Admin: 05/13/18 07:51 Dose: Not Given Melatonin (Melatonin) 3 mg PO BEDTIME [facility] Last Admin: 05/12/18 20:42 Dose: 3 mg Senna (Senokot Tab*) 1 tab PO BEDTIME PRN PRN Reason: CONSTIPATION Last Admin: 05/12/18 10:21 Dose: 1 tab Tramadol HCl (Ultram*) 50 mg PO Q6HR PRN PRN Reason: PAIN Vital Signs - 8 hr 05/13/18 04:16 Temperature 98.7 F Pulse Rate 79 Respiratory 17 Rate Blood Pressure 139/66 (mmHg) O2 Sat by Pulse 98 Oximetry Oxygen Devices in Use Now: None Appearance: Sitting in chair, not in distress. Eyes: PERRLA Respiratory: Clear to Auscultation Cardiovascular: RRR Abdominal: NL Sounds; No Tenderness; No Distention Neurological: Alert and Oriented x 3 Result Diagrams: 05/13/18 06:31 05/13/18 06:31 Microbiology and Other Data: Microbiology 05/11/18 17:30 Legionella Urinary Antigen - Final Urine Negative Legionella Antigen Streptococcus pneumoniae Ag Screen - Final Negative S. pneumo Antigen 05/11/18 11:59 Influenza Types A,B Antigen - Final Nasopharyngeal Specimen received for Influenza A/B Molecular testing Assess/Plan/Problems-Billing Assessment: - Patient Problems (1) Sepsis due to pneumonia Current Visit: Yes Status: Acute Code(s): J18.9 - PNEUMONIA, UNSPECIFIED ORGANISM; A41.9 - SEPSIS, UNSPECIFIED ORGANISM SNOMED Code(s): 26386672 Comment: Improved. blood cultures negative. negative legionella, on rocephin , azithromycin, likely discharge today with 7 days of augmentin,. (2) Diabetes Current Visit: Yes Status: Acute Priority: High Code(s): E11.9 - TYPE 2 DIABETES MELLITUS WITHOUT COMPLICATIONS SNOMED Code(s): 67448772 Comment: Home metformin held, and glipizide Continue home lantus monitor fingerstick and sliding scale,. (3) HLD (hyperlipidemia) Current Visit: Yes Status: Acute Priority: High Code(s): E78.5 - HYPERLIPIDEMIA, UNSPECIFIED SNOMED Code(s): 65984802 Comment: continue statin (4) HTN (hypertension) Current Visit: Yes Status: Acute Priority: High Code(s): I10 - ESSENTIAL ( PRIMARY) HYPERTENSION SNOMED Code(s): 72297361 Comment: BP is going up, will go home with resume of home lisinopril/hctz (5) Constipated Current Visit: Yes Status: Acute Code(s): K59.00 - CONSTIPATION, UNSPECIFIED SNOMED Code(s): 47917758 Comment: Has not had BM since 05/09, order senna and colace (6) DVT prophylaxis Current Visit: Yes Status: Acute Code(s): BPG4288 - SNOMED Code(s): 258472913 Comment: Heparin Sub-q (7) Full code status Current Visit: Yes Status: Acute Code(s): Z78.9 - OTHER SPECIFIED HEALTH STATUS SNOMED Code(s): 223903546 Status and Disposition: Plan to discharge home today.,
[2018-05-13 10:11] VITALS: BP 159/71
--- NOTE | 2018-05-13 12:22 | DS ---
CC: Edie Small DISCHARGE SUMMARY: DATE OF ADMISSION: 05/11/18 DATE OF DISCHARGE: 05/13/18 DICTATING PHYSICIAN: Dr. Estella Holden. PRIMARY CARE PROVIDER: Edie Small NP REASON FOR ADMISSION: Shaking chills, fever. HOSPITAL COURSE: This is an 82-year-old male with past medical history of diabetes, hypertension, hy perlipidemia, CKD stage 3, BPH, who was brought into the hospital because of fevers and chills. On a dmission, workup was done in the emergency room and we found the patient to have sepsis secondary to right middle lobe pneumonia. The patient was given Levaquin in the emergency room and was started meza bsequently on azithromycin and Rocephin. The patient was also found to have lactic acidosis, for whi ch metformin and glipizide were held. The patient was started on IV fluids, we resumed his home Lant us and was placed on sliding scale insulin. Due to being septic, we held the patient's lisinopril an d hydrochlorothiazide. The patient continued to improve. Thus far the patient's blood cultures remained negative and the pa rupinder continues to feel better, currently he is off of oxygen. The patient continues to feel better. HOSPITAL WORKUP: Included a chest x-ray which found right middle lobe pneumonia, was found to have l actic acidosis with lactic acid of 2.8 on admission, which improved to 1.4. He was also found to hav e hypokalemia for which that was repleted, was also found to have leukocytosis secondary to sepsis. CONDITION ON DISCHARGE: Stable. DISCHARGE PLAN: 1. The patient is to follow up with his primary care provider, Dr. Edie Small in a week, diabetic diet. Activity as tolerated. The patient advised to come back to the emergency room for any fevers , chills, shortness of breath, cough, chest pain, or if new symptoms occur. 2. The patient is to follow up with the PCP in a week. 3. Diabetic diet. DISCHARGE MEDICATIONS: Include: 1. Aspirin 81 mg daily. 2. Tramadol 50 mg every 6 hours as needed. 3. Metformin 1000 mg twice a day. 4. Simvastatin 40 mg daily. 5. Ferrous sulfate 325 mg daily. 6. Cyanocobalamin 500 mcg tablet 1000 mcg daily. 7. Lisinopril/hydrochlorothiazide 20/12.5 daily. 8. Meloxicam 7.5 mg as needed. 9. Glipizide 10 mg in the morning. 10. Insulin Lantus/glargine 50 units subcutaneous daily. 11. Amoxicillin/clavulanate 875 mg twice daily, this is a new medication for which 20 tablets went s ent to his pharmacy. DISCHARGE DIAGNOSES: 1. Sepsis secondary to right middle lobe pneumonia. 2. Lactic acidosis 3. History of essential hypertension. 4. Type 2 diabetes. [id number]/[facility] #: [id number]
== END 2018-05-13 12:00 | disposition home or self-care (01) | DRG 871 ==
LOC: ED 12:26 → MED 15:43
PROVIDERS: ADMIT Hospitalist; ATTEND Internal Medicine
DX: A41.9 Sepsis, unspecified organism (principal); J18.1 Lobar pneumonia, unspecified organism; E87.2 Acidosis; E11.9 Type 2 diabetes mellitus without complications; E78.5 Hyperlipidemia, unspecified; I12.9 Hypertensive chronic kidney disease with stage 1 through stage 4 chronic kidney disease, or unspecified chronic kidney disease; K59.00 Constipation, unspecified; N18.3 Chronic kidney disease, stage 3 (moderate); N40.0 Benign prostatic hyperplasia without lower urinary tract symptoms; I49.3 Ventricular premature depolarization; E87.6 Hypokalemia; Z79.4 Long term (current) use of insulin; Z98.42 Cataract extraction status, left eye; Z98.41 Cataract extraction status, right eye; Z82.49 Family history of ischemic heart disease and other diseases of the circulatory system; Z83.3 Family history of diabetes mellitus; Z87.891 Personal history of nicotine dependence; Z79.82 Long term (current) use of aspirin; Z80.3 Family history of malignant neoplasm of breast
CPT/HCPCS: 36415; 71045; 80048; 80053; 81003; 81015; 83605; 84484; 85025; 85610; 86140; 87040; 87086; 87899; 93005; 99284; A9270-GY; J0456; J0696; J1644

== ENCOUNTER 2020-01-28 22:26 | Observation (INO) ==
[2020-01-28] MEDS ORDERED: NS 0.9% 1000 ml BAG 1,000 ML IV.FLUID IV ONE (22:34)
[2020-01-28] MEDS ORDERED: Piperacillin/Tazobac ADVAN 3.375 GM in NS 0.9% 100 ml BAG 100 ML IVPB ONE (22:34)
[2020-01-28] MEDS ORDERED: Vancomycin 1,000 MG in NS 0.9% 250 ml 250 ML IVPB ONE (23:00)
[2020-01-28 23:13] LABS: ABS Basophils 0.1 10^3/ul (0-0.2); ABS Eosinophils 0.1 10^3/ul (0-0.6); ABS Lymphocytes 0.7 10^3/ul (1.0-4.8); ABS Monocytes 0.7 10^3/ul (0-0.8); ABS Neutrophils 11.6 10^3/ul (1.5-7.7); Eosinophil % 0.7 %; Hematocrit 35 % (42-52); Hemoglobin 11.5 g/dL (14.0-18.0); Lymphocyte % 5.3 %; Mean Corpuscular HGB Conc 33 g/dL (31-36); Mean Corpuscular Hemoglobin 28 pg (27-31); Mean Corpuscular Volume 83 fL (80-94); Mean Platelet Volume 8.6 fL (7.4-10.4); Platelet Count 208 10^3/uL (150-450); Red Blood Count 4.17 10^6 /uL (4.18-5.48); Red Cell Distribution Width 15 % (10-15); White Blood Count 13.1 10^3/uL (3.5-10.8)
[2020-01-28] MEDS ORDERED: Piperacillin/Tazobac 3.375 GM BAG ONE (23:14)
[2020-01-28 23:23] LABS: Activated Partial Thrombo Time 26.9 seconds (26.0-38.0); INR 1.17 (0.82-1.09)
[2020-01-28 23:32] LABS: Albumin 4.2 g/dL (3.2-5.2); BUN/Creatinine Ratio 14.8 (8-20); C Reactive Protein 68.74 mg/L (<8.01); EGFR Non-African American 60.3 (>60); Globulin 4.3 g/dL (2-4); Potassium 3.2 mmol/L (3.5-5.0); Total Bilirubin 0.8 mg/dL (0.2-1.0); Total Protein 8.5 g/dL (6.4-8.9)
[2020-01-28 23:35] LABS: Troponin I 0.02 ng/mL (<0.03)
[2020-01-29 00:58] LABS: Urine Appearance Clear; Urine Bilirubin Negative (Negative); Urine Blood 1+ (Negative); Urine Color Straw; Urine Glucose 1+(50 mg/dL) (Negative); Urine Ketones 1+ (Negative); Urine Nitrite Negative (Negative); Urine Protein 1+(30 mg/dL) (Negative); Urine Specific Gravity 1.013 (1.010-1.030); Urine Urobilinogen Negative (Negative)
[2020-01-29 01:06] LABS: Urine Bacteria Absent (Absent); Urine Red Blood Cell Trace(0-2/hpf) (Absent); Urine White Blood Cell Trace(0-5/hpf) (Absent)
[2020-01-29 01:28] LABS: Urine Squamous Epithelial Cell Present (Absent)
[2020-01-29] MEDS ORDERED: Ondansetron 4 mg VIAL 2 MG/ML 2 ml VIAL IV PRN (01:53)
[2020-01-29] MEDS ORDERED: Potassium Chlor 20 meq TAB.ER PO ONE (02:01)
[2020-01-29] MEDS ORDERED: Dextrose 50% Syringe 50 ml 25 GM/50 ML SYRINGE IV PUSH PRN (02:17)
[2020-01-29 02:52] LABS: Influenza A Molecular Negative (Negative); Influenza B Molecular Negative (Negative)
[2020-01-29] MEDS ORDERED: Azithromycin 500 mg/250 ml NS 500 MG/250 ML BAG IVPB SCH (03:00)
[2020-01-29] MEDS: cefTRIAXone 1 gm/50 mL NS BAG 1 GM/50 ML BAG IVPB SCH (03:36)
[2020-01-29] MEDS: Enoxaparin 40 MG/0.4 ML SYR SUBCUT SCH (03:49)
[2020-01-29 05:58] LABS: ABS Basophils 0.1 10^3/ul (0-0.2); ABS Lymphocytes 1.5 10^3/ul (1.0-4.8); ABS Monocytes 1.3 10^3/ul (0-0.8); ABS Neutrophils 13.7 10^3/ul (1.5-7.7); Eosinophil % 0.1 %; Hematocrit 30 % (42-52); Hemoglobin 9.8 g/dL (14.0-18.0); Lymphocyte % 9.1 %; Mean Corpuscular HGB Conc 33 g/dL (31-36); Mean Corpuscular Hemoglobin 28 pg (27-31); Mean Corpuscular Volume 84 fL (80-94); Mean Platelet Volume 8.9 fL (7.4-10.4); Platelet Count 161 10^3/uL (150-450); Red Blood Count 3.52 10^6 /uL (4.18-5.48); Red Cell Distribution Width 15 % (10-15); White Blood Count 16.6 10^3/uL (3.5-10.8)
[2020-01-29 06:07] LABS: Calcium 7.9 mg/dL (8.6-10.3); Potassium 3.5 mmol/L (3.5-5.0)
[2020-01-29 06:13] LABS: EGFR African American 74.5 (>60); EGFR Non-African American 61.5 (>60)
[2020-01-29 08:13] LABS: Magnesium 1.3 mg/dL (1.9-2.7)
[2020-01-29] MEDS ORDERED: Magnesium Sulfate IV 3 GM in NS 0.9% 100 ml BAG 100 ML IVPB ONE (09:00)
[2020-01-30] MEDS: cefTRIAXone 1 gm/50 mL NS BAG 1 GM/50 ML BAG IVPB SCH (04:29)
[2020-01-30] MEDS: Enoxaparin 40 MG/0.4 ML SYR SUBCUT SCH (05:39)
[2020-01-30 05:59] LABS: ABS Basophils 0.1 10^3/ul (0-0.2); ABS Eosinophils 0.3 10^3/ul (0-0.6); ABS Lymphocytes 1.6 10^3/ul (1.0-4.8); ABS Monocytes 0.8 10^3/ul (0-0.8); ABS Neutrophils 7.5 10^3/ul (1.5-7.7); Eosinophil % 3.3 %; Hematocrit 30 % (42-52); Hemoglobin 9.9 g/dL (14.0-18.0); Lymphocyte % 15.1 %; Mean Corpuscular HGB Conc 33 g/dL (31-36); Mean Corpuscular Hemoglobin 28 pg (27-31); Mean Corpuscular Volume 83 fL (80-94); Mean Platelet Volume 9.1 fL (7.4-10.4); Platelet Count 174 10^3/uL (150-450); Red Blood Count 3.61 10^6 /uL (4.18-5.48); Red Cell Distribution Width 15 % (10-15); White Blood Count 10.3 10^3/uL (3.5-10.8)
[2020-01-30 06:19] LABS: BUN/Creatinine Ratio 15.2 (8-20); Calcium 8.5 mg/dL (8.6-10.3); Potassium 3.2 mmol/L (3.5-5.0)
[2020-01-30 08:59] LABS: Magnesium 1.8 mg/dL (1.9-2.7)
[2020-01-30] MEDS ORDERED: Potassium Chlor 20 meq TAB.ER PO ONE (10:00)
[2020-01-30 12:46] VITALS: BP 140/68
== END 2020-01-30 14:00 | disposition home or self-care (01) ==
LOC: ED 22:26 → MED 22:26
PROVIDERS: ADMIT Hospitalist; ATTEND Internal Medicine

== ENCOUNTER 2021-04-02 21:18 | Inpatient (IN) ==
[2021-04-02] MEDS ORDERED: Lactated Ringers 1000 ml BAG 1,000 ML IV ONE (21:24)
[2021-04-02 22:23] LABS: ABS Lymphocytes 0.7 10^3/ul (1.0-4.8); ABS Monocytes 0.9 10^3/ul (0-0.8); ABS Neutrophils 5.7 10^3/ul (1.5-7.7); Eosinophil % 0.1 %; Hematocrit 34 % (42-52); Hemoglobin 11.5 g/dL (14.0-18.0); Lymphocyte % 9.9 %; Mean Corpuscular HGB Conc 34 g/dL (31-36); Mean Corpuscular Hemoglobin 29 pg (27-31); Mean Corpuscular Volume 86 fL (80-94); Mean Platelet Volume 9.3 fL (7.4-10.4); Platelet Count 141 10^3/uL (150-450); Red Blood Count 4.02 10^6 /uL (4.18-5.48); Red Cell Distribution Width 14 % (10-15); White Blood Count 7.3 10^3/uL (3.5-10.8)
[2021-04-02 22:24] LABS: Venous Bicarbonate HCO3 26.1 mmol/L (24-28)
[2021-04-02 22:29] LABS: Urine Appearance Clear; Urine Bilirubin Negative (Negative); Urine Blood 1+ (Negative); Urine Color Yellow; Urine Glucose Negative (Negative); Urine Ketones 1+ (Negative); Urine Nitrite Negative (Negative); Urine Protein 2+(100 mg/dL) (Negative); Urine Specific Gravity 1.012 (1.002-1.030); Urine Urobilinogen Negative (Negative)
[2021-04-02 22:32] LABS: Urine Bacteria Absent (Absent); Urine Red Blood Cell 2+(6-10/hpf) (Absent); Urine Squamous Epithelial Cell Present (Absent); Urine White Blood Cell Trace(0-5/hpf) (Absent)
[2021-04-02 22:41] LABS: ALT 10 U/L (7-52); AST 23 U/L (13-39); Activated Partial Thrombo Time 25.9 seconds (26.0-38.0); Albumin 4.1 g/dL (3.2-5.2); Alkaline Phosphatase 78 U/L (35-149); Anion Gap 13 mmol/L (2-11); Blood Urea Nitrogen 19 mg/dL (6-24); CO2 Carbon Dioxide 28 mmol/L (22-32); Calcium 8.8 mg/dL (8.6-10.3); Chloride 96 mmol/L (101-111); Glucose 89 mg/dL (70-100); INR 1.13 (0.86-1.15); LDH 169 U/L (140-271); Potassium 3.1 mmol/L (3.5-5.0); Sodium 137 mmol/L (135-145); Total Protein 8.1 g/dL (6.4-8.9); eGFR CKD-EPI 52.7 (>60)
[2021-04-02 22:46] LABS: Troponin I 0.04 ng/mL (<0.03)
[2021-04-02 22:59] LABS: Ferritin 112.7 ng/mL (24-336)
[2021-04-02] MEDS ORDERED: Potassium Chlor 20 meq TAB.ER PO ONE (22:59)
[2021-04-02 23:34] LABS: Magnesium 1.4 mg/dL (1.9-2.7)
[2021-04-02] MEDS ORDERED: Magnesium Sulf 4 GM/100 ML IV 4,000 MG/100 ML BAG IVPB ONE (23:35)
[2021-04-03] MEDS ORDERED: Lactated Ringers 1000 ml BAG 1,000 ML IV ONE (00:23)
[2021-04-03] MEDS ORDERED: Dextrose 50% Syringe 50 ml 25 GM/50 ML SYRINGE IV PUSH PRN (00:24)
[2021-04-03 01:43] LABS: Troponin I 0.04 ng/mL (<0.03)
[2021-04-03 01:58] LABS: Rapid COVID-19 Molecular Detected (Undetected)
[2021-04-03 03:38] LABS: % Iron Saturation 7 % (15-55); Iron < 20 ug/dL (50-212); Total Iron Binding Capacity 297 mcg/dL (250-450); Transferrin 212 mg/dL (203-362); Unsaturated Iron Binding < 282 ug/dL
[2021-04-03] MEDS ORDERED: Enoxaparin 40 MG/0.4 ML SYR SUBCUT SCH (06:00)
[2021-04-03 06:39] LABS: ABS Lymphocytes 1.1 10^3/ul (1.0-4.8); ABS Monocytes 0.9 10^3/ul (0-0.8); ABS Neutrophils 4.6 10^3/ul (1.5-7.7); Hematocrit 33 % (42-52); Lymphocyte % 16.6 %; Mean Corpuscular HGB Conc 34 g/dL (31-36); Mean Corpuscular Hemoglobin 29 pg (27-31); Mean Corpuscular Volume 85 fL (80-94); Mean Platelet Volume 9.4 fL (7.4-10.4); Platelet Count 139 10^3/uL (150-450); Red Blood Count 3.86 10^6 /uL (4.18-5.48); Red Cell Distribution Width 14 % (10-15); White Blood Count 6.7 10^3/uL (3.5-10.8)
[2021-04-03 06:59] LABS: Calcium 8.7 mg/dL (8.6-10.3); Magnesium 2.5 mg/dL (1.9-2.7); Potassium 3.1 mmol/L (3.5-5.0); eGFR CKD-EPI 57.9 (>60)
[2021-04-03] MEDS ORDERED: Potassium Chlor 20 meq TAB.ER PO ONE (08:00)
[2021-04-03] MEDS: Aspirin EC 81 mg TAB.EC (enteric coated) PO SCH (10:18)
[2021-04-03] MEDS ORDERED: Ondansetron 4 mg VIAL 2 MG/ML 2 ml VIAL IV PRN (11:42)
[2021-04-03] MEDS: CMCS: Simvastatin 20 mg TAB (NF) PO SCH (11:43)
[2021-04-03] MEDS ORDERED: Acetaminophen IV 1 GM/100ML 100 ML IV PRN (11:52)
[2021-04-03] MEDS ORDERED: Iodixanol (CONTRAST) 320 MG/ML 100 ML SDV IV ONE (16:14)
[2021-04-03] MEDS ORDERED: Alteplase (100 mg Vial) 100 mg VIAL IV ONE ×2 (16:32)
[2021-04-03] MEDS ORDERED: Lactated Ringers 500 ml BAG 500 ML IV ONE (16:57)
[2021-04-04 04:42] LABS: ABS Lymphocytes 0.9 10^3/ul (1.0-4.8); ABS Monocytes 0.7 10^3/ul (0-0.8); ABS Neutrophils 5.3 10^3/ul (1.5-7.7); Hematocrit 31 % (42-52); Hemoglobin 10.3 g/dL (14.0-18.0); Lymphocyte % 12.8 %; Mean Corpuscular HGB Conc 34 g/dL (31-36); Mean Corpuscular Hemoglobin 29 pg (27-31); Mean Corpuscular Volume 85 fL (80-94); Mean Platelet Volume 9.3 fL (7.4-10.4); Platelet Count 111 10^3/uL (150-450); Red Blood Count 3.61 10^6 /uL (4.18-5.48); Red Cell Distribution Width 14 % (10-15); White Blood Count 6.9 10^3/uL (3.5-10.8)
[2021-04-04 05:16] LABS: Potassium 3.4 mmol/L (3.5-5.0); eGFR CKD-EPI 54.7 (>60)
[2021-04-04] MEDS ORDERED: Potassium Chloride LIQUID 20 MEQ/15 ML LIQUID PO ONE (05:23)
[2021-04-04] MEDS: CMCS: Simvastatin 20 mg TAB (NF) PO SCH (07:52)
[2021-04-04] MEDS: Aspirin EC 81 mg TAB.EC (enteric coated) PO SCH (07:52)
[2021-04-04] MEDS ORDERED: KCL 20 MEQ/100 ML IVPREMIX 20 MEQ/100 ML BAG ONE (07:53)
[2021-04-04] MEDS: KCL 20 MEQ/100 ML IVPREMIX 20 MEQ/100 ML BAG IV SCH ×2 (08:01→15:30)
[2021-04-04 08:36] LABS: Magnesium 1.7 mg/dL (1.9-2.7); Phosphorus 2.3 mg/dL (2.5-5.0)
[2021-04-04] MEDS ORDERED: Potassium Phosphate IV 15 MMOLE in NS 0.9% 250 ml 250 ML IVPB ONE (09:04)
[2021-04-04] MEDS ORDERED: Magnesium Sulfate IV 3 GM in NS 0.9% 100 ml BAG 100 ML IVPB ONE (09:05)
[2021-04-04] MEDS ORDERED: Labetalol IV 5 MG/ML 20 ml VIAL IV PUSH PRN (11:16)
[2021-04-04] MEDS ORDERED: Albuterol/Ipratropium NEB.SOL (2.5/0.5 MG) 3 ML NEB.SOLN INH PRN (18:24)
[2021-04-04] MEDS ORDERED: Albuterol/Ipratropium NEB.SOL (2.5/0.5 MG) 3 ML NEB.SOLN ONE (18:28)
[2021-04-04] MEDS ORDERED: niCARdipine 0.1MG/ML IVPREMIX 20 MG/200 ML BAG IV ONE (18:28)
[2021-04-04] MEDS ORDERED: Rocuronium 50 mg VIAL 10 mg/ml 5 ml VIAL (50 mg) ONE (18:35)
[2021-04-04] MEDS ORDERED: Propofol 10 mg/ml 100 ML BTL 100 ML ONE (18:43)
[2021-04-04] MEDS ORDERED: Propofol 10 MG/ML 20 ML BTL ONE (18:44)
[2021-04-04] MEDS ORDERED: niCARdipine 0.1MG/ML IVPREMIX 20 MG/200 ML BAG IV SCH ×2 (19:00→19:48)
[2021-04-04] MEDS: Propofol 10 mg/ml 100 ML BTL 100 ML IV SCH (19:00)
[2021-04-04 20:27] LABS: PCO2 Arterial 34 mmHg (35-45); PO2 Arterial 255 mmHg (80-100)
[2021-04-04] MEDS: Chlorhexidine MOUTHWASH 0.12% 15 ML UDC TOPICAL SCH ×2 (20:45→23:24)
[2021-04-04] MEDS: Pantoprazole VIAL 40 MG VIAL IV SCH (22:12)
[2021-04-04] MEDS ORDERED: Lactated Ringers 1000 ml BAG 1,000 ML IV ONE (22:33)
[2021-04-04] MEDS: fentaNYL 100 mcg/2 ml 50 MCG/ML VIAL IV SLOW PU PRN (23:24)
[2021-04-05] MEDS ORDERED: Piperacillin/Tazobac ADVAN 3.375 GM in NS 0.9% 100 ml BAG 100 ML IV ONE (00:02)
[2021-04-05] MEDS ORDERED: Zosyn per Pharmacy NOTE FOLLOW UP SCH (01:00)
[2021-04-05] MEDS: Propofol 10 mg/ml 100 ML BTL 100 ML IV SCH (02:45)
[2021-04-05] MEDS ORDERED: Acetaminophen IV 1 GM/100ML 100 ML IV ONE (03:46)
[2021-04-05] MEDS: Chlorhexidine MOUTHWASH 0.12% 15 ML UDC TOPICAL SCH ×5 (04:06→20:27)
[2021-04-05 04:53] LABS: ABS Lymphocytes 0.7 10^3/ul (1.0-4.8); ABS Monocytes 0.5 10^3/ul (0-0.8); ABS Neutrophils 9.6 10^3/ul (1.5-7.7); Hematocrit 30 % (42-52); Hemoglobin 10.2 g/dL (14.0-18.0); Lymphocyte % 6.4 %; Mean Corpuscular HGB Conc 34 g/dL (31-36); Mean Corpuscular Hemoglobin 29 pg (27-31); Mean Corpuscular Volume 86 fL (80-94); Mean Platelet Volume 9.8 fL (7.4-10.4); Platelet Count 113 10^3/uL (150-450); Red Blood Count 3.53 10^6 /uL (4.18-5.48); Red Cell Distribution Width 14 % (10-15); White Blood Count 10.7 10^3/uL (3.5-10.8)
[2021-04-05] MEDS ORDERED: Linezolid 600 MG IVPREMIX(*) 600 MG/300 ML BAG IVPB SCH (05:00)
[2021-04-05] MEDS ORDERED: LACTATED RINGERS IV ONE (05:00)
[2021-04-05 05:09] LABS: Calcium 7.8 mg/dL (8.6-10.3); Magnesium 2.2 mg/dL (1.9-2.7); Phosphorus 3.9 mg/dL (2.5-5.0); Potassium 3.9 mmol/L (3.5-5.0)
[2021-04-05 05:35] LABS: Urine Appearance Cloudy; Urine Bilirubin Negative (Negative); Urine Blood 2+ (Negative); Urine Color Yellow; Urine Glucose 1+(50 mg/dL) (Negative); Urine Ketones 1+ (Negative); Urine Nitrite Negative (Negative); Urine Protein 3+(>=500 mg/dL) (Negative); Urine Urobilinogen Negative (Negative)
[2021-04-05 05:43] LABS: Urine Bacteria Absent (Absent); Urine Granular Casts Present (Absent); Urine Red Blood Cell Trace(0-2/hpf) (Absent); Urine White Blood Cell Absent (Absent)
[2021-04-05] MEDS: ZOSYN 3.375 GM Q8H per EXTENDED INFUSION IV SCH ×5 (06:36→22:49)
[2021-04-05] MEDS ORDERED: Remdesivir 100 mg Vial 200 MG in NS 0.9% 250 ml 210 ML IV ONE (09:30)
[2021-04-05] MEDS: CMCS: Simvastatin 20 mg TAB (NF) PO SCH (11:19)
[2021-04-05] MEDS ORDERED: Lactated Ringers 1000 ml BAG 1,000 ML IV ONE (11:32)
[2021-04-05] MEDS ORDERED: Norepinephrine 16MCG/ML IVPRE 4,000 MCG/250 ML BAG IV ONE (11:37)
[2021-04-05] MEDS: fentaNYL 100 mcg/2 ml 50 MCG/ML VIAL IV SLOW PU PRN ×4 (13:45→20:33)
[2021-04-05] MEDS ORDERED: fentaNYL 100 mcg/2 ml 50 MCG/ML VIAL IV SLOW PU ONE (13:56)
[2021-04-05] MEDS ORDERED: fentaNYL 100 mcg/2 ml 50 MCG/ML VIAL ONE (13:57)
[2021-04-05] MEDS ORDERED: fentaNYL INFUSION 50 mcg/mL VL 2,500 MCG/50 ML VIAL IV SCH (14:00)
[2021-04-05] MEDS: Lactated Ringers 1000 ml BAG 1,000 ML IV SCH (14:01)
[2021-04-05] MEDS: Heparin 5000 UNITS/ML 1 mL VIAL SUBCUT SCH (20:27)
[2021-04-05] MEDS: Pantoprazole VIAL 40 MG VIAL IV SCH (20:27)
[2021-04-06] MEDS: Chlorhexidine MOUTHWASH 0.12% 15 ML UDC TOPICAL SCH ×4 (00:17→12:44)
[2021-04-06] MEDS: Lactated Ringers 1000 ml BAG 1,000 ML IV SCH (00:53)
[2021-04-06] MEDS: Acetaminophen IV 1 GM/100ML 100 ML IV PRN ×2 (00:57→13:09)
[2021-04-06] MEDS: fentaNYL 100 mcg/2 ml 50 MCG/ML VIAL IV SLOW PU PRN ×2 (04:54→06:47)
[2021-04-06 04:55] LABS: Hematocrit 26 % (42-52); Mean Corpuscular HGB Conc 34 g/dL (31-36); Mean Corpuscular Hemoglobin 29 pg (27-31); Mean Corpuscular Volume 85 fL (80-94); Mean Platelet Volume 9.8 fL (7.4-10.4); Platelet Count 101 10^3/uL (150-450); Red Blood Count 3.11 10^6 /uL (4.18-5.48); Red Cell Distribution Width 14 % (10-15); White Blood Count 8.8 10^3/uL (3.5-10.8)
[2021-04-06 05:00] LABS: INR 1.21 (0.86-1.15)
[2021-04-06 05:11] LABS: Calcium 7.2 mg/dL (8.6-10.3); Magnesium 1.9 mg/dL (1.9-2.7); Phosphorus 3.7 mg/dL (2.5-5.0); Potassium 3.6 mmol/L (3.5-5.0); eGFR CKD-EPI 23.4 (>60)
[2021-04-06] MEDS ORDERED: Magnesium Sulfate 2 gm BAG 2 GM/50 ML BAG IVPB ONE (06:43)
[2021-04-06] MEDS: ZOSYN 3.375 GM Q8H per EXTENDED INFUSION IV SCH ×3 (06:47→23:25)
[2021-04-06] MEDS ORDERED: Magnesium Sulfate IV 1GM/100ML 1 GM/100 ML BAG IV ONE (07:44)
[2021-04-06] MEDS: Heparin 5000 UNITS/ML 1 mL VIAL SUBCUT SCH ×2 (07:52→20:29)
[2021-04-06] MEDS: KCL 20 MEQ/100 ML IVPREMIX 20 MEQ/100 ML BAG IV SCH ×2 (07:52→10:22)
[2021-04-06] MEDS: CMCS: Simvastatin 20 mg TAB (NF) PO SCH (07:54)
[2021-04-06] MEDS ORDERED: Remdesivir 100 mg Vial 100 MG in NS 0.9% 250 ml 230 ML IV SCH (09:00)
[2021-04-06] MEDS ORDERED: Lactated Ringers 1000 ml BAG 1,000 ML IV SCH (14:41)
[2021-04-06] MEDS: CMC:Saliva Substitute (NF) 1 SPRAY BTL MT SCH (16:56)
[2021-04-06] MEDS ORDERED: D5LR 1000 ml BAG 1,000 ML IV SCH (19:00)
[2021-04-06] MEDS: Pantoprazole VIAL 40 MG VIAL IV SCH (20:29)
[2021-04-06] MEDS: hydrALAZINE 20 mg/ml 1 ML Vial IV IV SLOW PU PRN (23:34)
[2021-04-07 05:01] LABS: Hematocrit 28 % (42-52); Hemoglobin 9.4 g/dL (14.0-18.0); Mean Corpuscular HGB Conc 34 g/dL (31-36); Mean Corpuscular Hemoglobin 29 pg (27-31); Mean Corpuscular Volume 85 fL (80-94); Mean Platelet Volume 9.9 fL (7.4-10.4); Platelet Count 143 10^3/uL (150-450); Red Blood Count 3.28 10^6 /uL (4.18-5.48); Red Cell Distribution Width 15 % (10-15); White Blood Count 10.3 10^3/uL (3.5-10.8)
[2021-04-07 05:20] LABS: Calcium 7.5 mg/dL (8.6-10.3); Magnesium 2.4 mg/dL (1.9-2.7); Phosphorus 3.7 mg/dL (2.5-5.0); Potassium 3.8 mmol/L (3.5-5.0); eGFR CKD-EPI 19.5 (>60)
[2021-04-07] MEDS: ZOSYN 3.375 GM Q8H per EXTENDED INFUSION IV SCH ×3 (06:40→22:42)
[2021-04-07] MEDS ORDERED: D5LR 1000 ml BAG 1,000 ML IV SCH (08:54)
[2021-04-07] MEDS: Heparin 5000 UNITS/ML 1 mL VIAL SUBCUT SCH ×2 (09:18→22:08)
[2021-04-07] MEDS: CMCS: Simvastatin 20 mg TAB (NF) PO SCH (09:32)
[2021-04-07 18:26] LABS: Calcium 7.8 mg/dL (8.6-10.3); Potassium 3.5 mmol/L (3.5-5.0); eGFR CKD-EPI 19.7 (>60)
[2021-04-07] MEDS: Pantoprazole VIAL 40 MG VIAL IV SCH (22:08)
[2021-04-08] MEDS ORDERED: hydrALAZINE 20 mg/ml 1 ML Vial IV IV SLOW PU PRN (01:45)
[2021-04-08] MEDS: hydrALAZINE 20 mg/ml 1 ML Vial IV IV SLOW PU PRN (03:24)
[2021-04-08 05:23] LABS: Hematocrit 31 % (42-52); Hemoglobin 10.5 g/dL (14.0-18.0); Mean Corpuscular HGB Conc 33 g/dL (31-36); Mean Corpuscular Hemoglobin 29 pg (27-31); Mean Corpuscular Volume 85 fL (80-94); Mean Platelet Volume 9.8 fL (7.4-10.4); Platelet Count 179 10^3/uL (150-450); Red Blood Count 3.67 10^6 /uL (4.18-5.48); Red Cell Distribution Width 15 % (10-15); White Blood Count 8.1 10^3/uL (3.5-10.8)
[2021-04-08 05:31] LABS: ABS Lymphocytes 0.6 10^3/ul (1.0-4.8); ABS Monocytes 0.7 10^3/ul (0-0.8); ABS Neutrophils 6.8 10^3/ul (1.5-7.7); Eosinophil % 0.3 %; Lymphocyte % 7.1 %
[2021-04-08 05:35] LABS: CO2 Carbon Dioxide 21 mmol/L (22-32); Chloride 107 mmol/L (101-111); Sodium 143 mmol/L (135-145)
[2021-04-08 05:41] LABS: Blood Urea Nitrogen 63 mg/dL (6-24); Glucose 217 mg/dL (70-100); eGFR CKD-EPI 19.7 (>60)
[2021-04-08 05:45] LABS: Anion Gap 15 mmol/L (2-11)
[2021-04-08 07:07] LABS: Magnesium 2.2 mg/dL (1.9-2.7)
[2021-04-08 07:11] LABS: Phosphorus 2.9 mg/dL (2.5-5.0); Potassium Redraw 3.4 mmol/L (3.5-5.0)
[2021-04-08] MEDS ORDERED: D5LR 1000 ml BAG 1,000 ML IV SCH (08:00)
[2021-04-08] MEDS: CMC:Saliva Substitute (NF) 1 SPRAY BTL MT PRN ×3 (08:00→21:42)
[2021-04-08] MEDS: ZOSYN 3.375 GM Q8H per EXTENDED INFUSION IV SCH ×2 (08:08→21:22)
[2021-04-08] MEDS: Heparin 5000 UNITS/ML 1 mL VIAL SUBCUT SCH ×2 (08:45→21:28)
[2021-04-08] MEDS: KCL 20 MEQ/100 ML IVPREMIX 20 MEQ/100 ML BAG IV SCH ×3 (08:45→14:16)
[2021-04-08] MEDS: CMCS: Simvastatin 20 mg TAB (NF) PO SCH (08:45)
[2021-04-08] MEDS ORDERED: hydrALAZINE 20 mg/ml 1 ML Vial IV ONE (13:35)
[2021-04-08] MEDS ORDERED: Metoprolol Tartrate 5 mg VIAL 5 ml VIAL (1 mg/ml) IV PRN (13:48)
[2021-04-08] MEDS ORDERED: Labetalol IV 5 MG/ML 20 ml VIAL ONE (15:56)
[2021-04-08] MEDS: Labetalol IV 5 MG/ML 20 ml VIAL IV PUSH SCH ×2 (16:02→21:28)
[2021-04-08] MEDS ORDERED: TPN 24 HR with D10W 1000 ml BAG 1,000 ML, Amino Acid Infusion 10% 850 ML, Sterile Water... IV SCH (17:00)
[2021-04-08] MEDS: Saline FLUSH-CENTRAL 10 ML SYRINGE CENT\\PICC SCH (19:00)
[2021-04-08] MEDS: Pantoprazole VIAL 40 MG VIAL IV SCH (21:28)
[2021-04-09] MEDS: hydrALAZINE 20 mg/ml 1 ML Vial IV IV SLOW PU PRN ×3 (00:39→16:43)
[2021-04-09] MEDS: CMC:Saliva Substitute (NF) 1 SPRAY BTL MT PRN ×2 (01:54→05:18)
[2021-04-09] MEDS: Labetalol IV 5 MG/ML 20 ml VIAL IV PUSH SCH ×4 (03:56→21:59)
[2021-04-09 05:30] LABS: Hematocrit 26 % (42-52); Hemoglobin 8.7 g/dL (14.0-18.0); Mean Corpuscular HGB Conc 34 g/dL (31-36); Mean Corpuscular Hemoglobin 29 pg (27-31); Mean Corpuscular Volume 85 fL (80-94); Mean Platelet Volume 9.2 fL (7.4-10.4); Platelet Count 212 10^3/uL (150-450); Red Cell Distribution Width 15 % (10-15)
[2021-04-09 05:46] LABS: Blood Urea Nitrogen 63 mg/dL (6-24); CO2 Carbon Dioxide 19 mmol/L (22-32); Calcium 8.2 mg/dL (8.6-10.3); Glucose 290 mg/dL (70-100); Potassium 3.4 mmol/L (3.5-5.0); Sodium 145 mmol/L (135-145); eGFR CKD-EPI 24.1 (>60)
[2021-04-09 05:58] LABS: Anion Gap 14 mmol/L (2-11); Chloride 112 mmol/L (101-111)
[2021-04-09 06:08] LABS: ABS Lymphocytes 0.6 10^3/ul (1.0-4.8); ABS Monocytes 1.2 10^3/ul (0-0.8); ABS Neutrophils 7.1 10^3/ul (1.5-7.7); Eosinophil % 0.5 %; Lymphocyte % 6.3 %
[2021-04-09] MEDS: KCL 20 MEQ/100 ML IVPREMIX 20 MEQ/100 ML BAG IV SCH ×2 (07:57→09:55)
[2021-04-09 09:40] LABS: Magnesium 2.1 mg/dL (1.9-2.7)
[2021-04-09 09:47] LABS: Troponin I 0.06 ng/mL (<0.03)
[2021-04-09] MEDS ORDERED: Furosemide 40 mg/4 ml IV VIAL IV SLOW PU ONE (09:49)
[2021-04-09 10:10] LABS: Hematocrit 27 % (42-52); Hemoglobin 9.3 g/dL (14.0-18.0); Mean Corpuscular HGB Conc 34 g/dL (31-36); Mean Corpuscular Hemoglobin 29 pg (27-31); Mean Corpuscular Volume 85 fL (80-94); Mean Platelet Volume 9.1 fL (7.4-10.4); Platelet Count 239 10^3/uL (150-450); Red Blood Count 3.23 10^6 /uL (4.18-5.48); Red Cell Distribution Width 15 % (10-15); White Blood Count 9.1 10^3/uL (3.5-10.8)
[2021-04-09] MEDS: Saline FLUSH-CENTRAL 10 ML SYRINGE CENT\\PICC SCH ×2 (10:13→22:01)
[2021-04-09] MEDS: CMCS: Simvastatin 20 mg TAB (NF) PO SCH (10:13)
[2021-04-09] MEDS: Heparin 5000 UNITS/ML 1 mL VIAL SUBCUT SCH ×2 (10:13→21:36)
[2021-04-09 10:17] LABS: INR 1.25 (0.86-1.15)
[2021-04-09] MEDS: ZOSYN 3.375 GM Q8H per EXTENDED INFUSION IV SCH ×2 (10:19→22:01)
[2021-04-09 10:39] LABS: Troponin I 0.06 ng/mL (<0.03)
[2021-04-09 11:19] LABS: ABS Lymphocytes 0.4 10^3/ul (1.0-4.8); ABS Neutrophils 7.6 10^3/ul (1.5-7.7); Eosinophil % 0.4 %; Lymphocyte % 4.7 %; RBC Morphology Normal (Normal)
[2021-04-09 12:55] LABS: PCO2 Arterial 31 mmHg (35-45); PO2 Arterial 65 mmHg (80-100)
[2021-04-09] MEDS ORDERED: TPN 24 HR with D10W 1000 ml BAG 1,000 ML, Amino Acid Infusion 10% 850 ML, Sterile Water... IV SCH (17:00)
[2021-04-09 17:03] LABS: Hematocrit 28 % (42-52); Hemoglobin 9.8 g/dL (14.0-18.0); Mean Corpuscular HGB Conc 35 g/dL (31-36); Mean Corpuscular Hemoglobin 30 pg (27-31); Mean Corpuscular Volume 85 fL (80-94); Platelet Count 262 10^3/uL (150-450); Red Blood Count 3.33 10^6 /uL (4.18-5.48); Red Cell Distribution Width 15 % (10-15); White Blood Count 10.3 10^3/uL (3.5-10.8)
[2021-04-09 17:32] LABS: Calcium 8.7 mg/dL (8.6-10.3); Magnesium 2.1 mg/dL (1.9-2.7); Potassium 3.8 mmol/L (3.5-5.0); eGFR CKD-EPI 24.3 (>60)
[2021-04-09] MEDS ORDERED: Morphine 2 MG/ML SYRINGE IV ONE (17:39)
[2021-04-09] MEDS ORDERED: Morphine 2 MG/ML SYRINGE ONE (17:39)
[2021-04-09 17:44] LABS: ABS Lymphocytes 0.7 10^3/ul (1.0-4.8); ABS Monocytes 1.2 10^3/ul (0-0.8); ABS Neutrophils 8.5 10^3/ul (1.5-7.7); Eosinophil % 0.1 %; Lymphocyte % 6.4 %
[2021-04-09 17:53] LABS: Troponin I 0.08 ng/mL (<0.03)
[2021-04-09] MEDS: Acetaminophen IV 1 GM/100ML 100 ML IV PRN (18:36)
[2021-04-09] MEDS: Pantoprazole VIAL 40 MG VIAL IV SCH (21:36)
[2021-04-09] MEDS: Dexmedetomidine 1,000 MCG in NS 0.9% 250 ml 240 ML IV SCH (21:58)
[2021-04-10] MEDS: Labetalol IV 5 MG/ML 20 ml VIAL IV PUSH SCH ×2 (03:00→10:34)
[2021-04-10 04:39] LABS: Hematocrit 25 % (42-52); Hemoglobin 8.9 g/dL (14.0-18.0); Mean Corpuscular HGB Conc 35 g/dL (31-36); Mean Corpuscular Hemoglobin 30 pg (27-31); Mean Corpuscular Volume 85 fL (80-94); Platelet Count 229 10^3/uL (150-450); Red Blood Count 2.96 10^6 /uL (4.18-5.48); Red Cell Distribution Width 15 % (10-15); White Blood Count 9.8 10^3/uL (3.5-10.8)
[2021-04-10 04:41] LABS: ABS Basophils 0.1 10^3/ul (0-0.2); ABS Eosinophils 0.1 10^3/ul (0-0.6); ABS Lymphocytes 0.5 10^3/ul (1.0-4.8); Eosinophil % 0.8 %; Lymphocyte % 5.5 %
[2021-04-10 04:57] LABS: ALT 17 U/L (7-52); AST 27 U/L (13-39); Albumin 2.9 g/dL (3.2-5.2); Albumin/Globulin Ratio 0.8 (1-3); Alkaline Phosphatase 61 U/L (35-149); Blood Urea Nitrogen 78 mg/dL (6-24); CO2 Carbon Dioxide 22 mmol/L (22-32); Calcium 8.8 mg/dL (8.6-10.3); Cholesterol 105 mg/dL; Globulin 3.5 g/dL (2-4); Glucose 315 mg/dL (70-100); Magnesium 2.1 mg/dL (1.9-2.7); Total Protein 6.4 g/dL (6.4-8.9); Triglycerides 344 mg/dL; eGFR CKD-EPI 24.4 (>60)
[2021-04-10 05:02] LABS: Anion Gap 9 mmol/L (2-11); Chloride 115 mmol/L (101-111); Sodium 146 mmol/L (135-145)
[2021-04-10 05:32] LABS: Prealbumin 10 mg/dL (18-38)
[2021-04-10] MEDS: ZOSYN 3.375 GM Q8H per EXTENDED INFUSION IV SCH ×2 (08:38→21:50)
[2021-04-10] MEDS: Acetaminophen IV 1 GM/100ML 100 ML IV PRN ×2 (08:41→15:29)
[2021-04-10 08:50] LABS: Troponin I 0.06 ng/mL (<0.03)
[2021-04-10] MEDS: Pantoprazole VIAL 40 MG VIAL IV SCH (09:05)
[2021-04-10] MEDS: Heparin 5000 UNITS/ML 1 mL VIAL SUBCUT SCH (09:05)
[2021-04-10] MEDS: CMCS: Simvastatin 20 mg TAB (NF) PO SCH (10:17)
[2021-04-10] MEDS: Dexmedetomidine 1,000 MCG in NS 0.9% 250 ml 240 ML IV SCH (10:34)
[2021-04-10] MEDS: Saline FLUSH-CENTRAL 10 ML SYRINGE CENT\\PICC SCH (10:35)
[2021-04-10] MEDS ORDERED: Furosemide 40 mg/4 ml IV VIAL IV SLOW PU ONE (10:48)
[2021-04-10] MEDS ORDERED: TPN 24 HR with D10W 1000 ml BAG 1,000 ML, Amino Acid Infusion 10% 850 ML, Sterile Water... IV SCH (17:00)
[2021-04-10] MEDS ORDERED: Lorazepam PYXIS KEY PRN (20:11)
[2021-04-10] MEDS: Morphine 2 MG/ML SYRINGE IV PRN (20:35)
[2021-04-10] MEDS ORDERED: Insulin GLARGINE 100 un/ml 10 ml VIAL SUBCUT SCH (21:00)
[2021-04-10] MEDS: LORazepam 2 mg VIAL 1 ml IV PUSH PRN (22:41)
[2021-04-11] MEDS: Morphine 2 MG/ML SYRINGE IV PRN (01:29)
[2021-04-11] MEDS: LORazepam 2 mg VIAL 1 ml IV PUSH PRN (02:35)
[2021-04-11] MEDS: Acetaminophen IV 1 GM/100ML 100 ML IV PRN (02:56)
[2021-04-11 03:57] VITALS: BP 39/28
== END 2021-04-11 04:38 | disposition expired | DRG 208 ==
LOC: ED 21:18 → EDHOLD 04-03 00:14 → SUATTDRO 04-03 00:14 → MED 04-03 03:58 → ICU 04-03 16:38
PROVIDERS: ADMIT Student in an Organized Health Care Education/Training Program; ATTEND Surgery Surgical Critical Care